=== PATIENT | male | born 1950 | race Caucasian/White ===

== ENCOUNTER 2016-07-21 21:25 | Inpatient (IN) | payer MEDICARE, OTHER ==
[~2016-07-21] VITALS: Ht 160 cm; Wt 99.8 kg
[2016-07-21 21:25] VITALS: BP 96/73
--- NOTE | 2016-07-21 21:25 | NUR ---
2104- PT ANCA SUTTON. TAKEN TO BED 1
--- NOTE | 2016-07-21 21:26 | NUR ---
BIBA C/O ABNORMAL LABS HGB 6. 8, FROM [facility]. PATIENT ALERT AWAKE ORIENTED CYMRO SPEAKING ONLY. HX: HTN, GOUT, GERD, HYPERLIPIDEMIA, SEPSIS, STROKE RIGHT SIDED WEAKNESS NKA CAME IN WITH ARAGON CATH, [facility] STATES RED COLOR IS NORMAL FOR PT, JAYLYN [facility] 1220
--- NOTE | 2016-07-21 22:00 | NUR ---
Patient being evaluated by physician DR HENLEY at bedside.
[2016-07-21] MEDS ORDERED: NACL 0.9% 1,000 ML IV ONE (22:01)
[2016-07-21 22:27] LABS: BASOPHILS # (AUTO) 0.3 K/uL (0.00-0.22); BASOPHILS % (AUTO) 2.4 % (0.0-2.0); EOSINOPHILS # (AUTO) 0.6 K/uL (0-0.4); EOSINOPHILS % (AUTO) 4.3 % (0.0-4.0); HEMATOCRIT 23.2 % (36-52); HEMOGLOBIN 7.5 g/dL (12.0-18.0); LYMPHOCYTES # (AUTO) 1.1 K/uL (2.0-11.5); LYMPHOCYTES % (AUTO) 7.8 % (20.5-51.1); MEAN CORPUSCULAR HEMOGLOBIN 28 pg (27-31); MEAN CORPUSCULAR HGB CONC 32 g/dL (33-37); MEAN CORPUSCULAR VOLUME 87 fL (80-94); MONOCYTES # (AUTO) 0.8 K/uL (0.8-1.0); MONOCYTES % (AUTO) 5.9 % (1.7-9.3); NEUTROPHILS # (AUTO) 10.8 K/uL (1.8-7.7); NEUTROPHILS % (AUTO) 79.6 % (42.2-75.2); PLATELET COUNT (AUTO) 413 K/uL (140-450); RED BLOOD CELL COUNT(AUTO) 2.67 MIL/uL (4.20-6.10); RED CELL DISTRIBUTION WIDTH 15.2 % (11.6-13.7); WHITE BLOOD COUNT (AUTO) 13.6 K/uL (4.8-10.8)
[2016-07-21] MEDS ORDERED: LANS15EC28 PO (22:32)
[2016-07-21] MEDS ORDERED: ALLO100T21 PO (22:32)
[2016-07-21] MEDS ORDERED: FURO-570 PO (22:32)
[2016-07-21] MEDS ORDERED: FERR325E14 PO (22:32)
[2016-07-21] MEDS ORDERED: CEP30L PO (22:32)
[2016-07-21] MEDS ORDERED: VITA1TAB44 PO (22:32)
[2016-07-21] MEDS ORDERED: LACT1TAB35 PO (22:32)
[2016-07-21 22:39] LABS: BILIRUBIN,URINE 1+ (NEGATIVE); BLOOD, URINE 2+ (NEGATIVE); COLOR,URINE ORANGE (YELLOW); LEUKOCYTE ESTERASE ,URINE 2+ (NEGATIVE); NITRITE, URINE POSITIVE (NEGATIVE); PH,URINE 5.5 (5.0-9.0); PROTEIN,URINE 1+ (NEGATIVE); UGLUCOSE NEGATIVE (NEGATIVE)
[2016-07-21 22:40] LABS: APPEARANCE,URINE HAZY (CLEAR)
[2016-07-21 22:42] LABS: ICTOTEST POSITIVE (NEGATIVE)
[2016-07-21 22:43] LABS: INR 1.3 (0.8-1.2); PROTHROMBIN TIME 12.2 secs (10.8-13.4)
[2016-07-21 22:45] LABS: BACTERIA,URINE 3+ /HPF (None Seen); SQUAMOUS EPITHELIAL CELL,UR 0-3 /LPF (0-3 (FEW)); WBC,URINE TOO MANY TO COUNT /HPF (0-5)
[2016-07-21 22:47] LABS: ALBUMIN 1.7 g/dL (3.4-5.0); ANION GAP 14.2 (8-16); CALCIUM 8.3 mg/dL (8.5-10.1); CREATININE 1.7 mg/dL (0.6-1.3); TOTAL BILIRUBIN 0.3 mg/dL (0.0-1.0); TOTAL PROTEIN, SERUM 7.5 g/dL (6.4-8.2)
[2016-07-21] MEDS ORDERED: METO5SOL19 PO (22:48)
[2016-07-21] MEDS ORDERED: MIRABULK PO (22:48)
[2016-07-21] MEDS ORDERED: POTA25TE38 PO (22:48)
[2016-07-21] MEDS ORDERED: TAMS0.4C96 PO (22:48)
[2016-07-21] MEDS ORDERED: LOSA25TA22 PO (22:48)
[2016-07-21] MEDS ORDERED: SENN-72 PO (22:48)
[2016-07-21] MEDS ORDERED: SIMV20TA1 PO (22:48)
[2016-07-21] MEDS ORDERED: SUCR1TAB35 PO (22:48)
[2016-07-21 22:49] LABS: POTASSIUM 6.2 mmol/L (3.5-5.1)
[2016-07-21] MEDS ORDERED: SODIUM POLYSTYRENE 15 GM/60 ML UDBTL PO ONE (22:50)
[2016-07-21 22:51] LABS: LACTIC ACID 2.2 mmol/L (0.4-2.0)
[2016-07-21] MEDS ORDERED: SAL1 PO (22:52)
[2016-07-21] MEDS ORDERED: LEVOFLOXACIN 750 MG/D5W PREMIX 150 ML IV ONE (23:00)
[2016-07-21] MEDS ORDERED: NACL 0.9% 1,500 ML IV ONE (23:00)
[2016-07-21] MEDS ORDERED: ASPIRIN 325 MG TAB PO ONE (23:00)
[2016-07-21] MEDS ORDERED: NACL 0.9% 1,000 ML IV SCH (23:30)
[2016-07-21] MEDS ORDERED: MORPHINE SULFATE 2 MG/ML SYR IVP PRN (23:30)
[2016-07-21] MEDS ORDERED: CALCIUM GLUCONATE 10% 1,000 MG in NACL 0.9% 50 ML IV ONE (23:35)
[2016-07-21] MEDS ORDERED: POLYETHYLENE GLYCOL 17 GM/PKT PO PRN (23:40)
[2016-07-22] VITALS (7 sets, daily range): BP systolic 90–125; BP diastolic 50–74
--- NOTE | 2016-07-22 00:03 | NUR ---
Pt report given to ERGAN WALLER . Transfer of care at this time.
--- NOTE | 2016-07-22 00:03 | NUR ---
Patient will be admitted to care of DR PINZON. Admited to TELE 107B. Will go to room 107B. Belongings list completed. Report to REGAN WALLER.
--- NOTE | 2016-07-22 01:10 | NUR ---
Admitted from EMERGENCY, with chief complaint of ABNORMAL LABS, 65 y/o ,Male, Awake, Alert and Orientedx4, Cooperative. Initial assessment done. Pt has midline on left upper arm. Vital signs checked. Plan of care discussed. Pt aware that he will receive blood. Pt oriented to call light, bed, phone,television, bathroom, smoking policy, visiting hours, procedures, ID bracelet on. Belongings list checked. MRSA swab collected. Pt placed on Isolation for history of MRSA, unknown source.
[2016-07-22] MEDS ORDERED: cefTRIAXone 1,000 MG VIAL ONE (01:23)
[2016-07-22] MEDS ORDERED: CALCIUM GLUCONATE 10% 1000 MG/10 ML VIAL ONE (01:23)
--- NOTE | 2016-07-22 01:30 | NUR ---
Pt made aware that another IV is needed for his antibiotic. Pt verbalized understanding.
--- NOTE | 2016-07-22 02:00 | NUR ---
NEW IV IN PLACED ON RT HAND G24 AFTER SEVERAL ATTEMPTS. IV ANTIBIOTIC WILL BE GIVEN ORDERED.
--- NOTE | 2016-07-22 02:23 | NUR ---
BLOOD TRANSFUSION STARTED. VITAL SIGNS CHECKED AND WNL. WILL CONTINUE TO MONITOR. Addendum: 07/22/16 at 0705 by Darlene Edward RN NOTES FOR 0235
--- NOTE | 2016-07-22 02:23 | NUR ---
PRE VITAL SIGNS CHECKED AND WNL. PT INFORMED THAT BLOOD IS AVAILABLE NOW. PT VERBALIZED UNDERSTANDING.
--- NOTE | 2016-07-22 02:50 | NUR ---
POST 15MINS BT VS CHECKED AND WNL. PT DENIES ANY DISCOMFORT OR ADVERSE REACTIONS. WILL CONTINUE TO MONITOR.
--- NOTE | 2016-07-22 04:00 | NUR ---
PT SLEEPING COMFORTABLY STILL BREATHING SLIGHTLY HEAVY. VITAL SIGNS CHECKED. PT DENIES ANY DISCOMFORT. SAFETY REINFORCED. CALL LIGHT W/IN REACH.
--- NOTE | 2016-07-22 05:00 | NUR ---
PT CALLED SAYING HE HAD BM. INFORMED ARBORIST REPRESENTATIVE AND WILL COME TO CLEAN PATIENT.
--- NOTE | 2016-07-22 05:50 | NUR ---
BLOOD TRANSFUSION FINISHED. VITAL SIGNS CHECKED. PT DENIES ANY DISCOMFORT OR ADVERSE REACTIONS. WILL CONTINUE TO MONITOR.
--- NOTE | 2016-07-22 07:15 | NUR ---
REPORT GIVEN TO DAYSHIFT NURSE.
--- NOTE | 2016-07-22 07:19 | NUR ---
RECEIVED REPORT FROM JANAY RN. PT SLEEPING IN BED. AAOX4. NO S/S OF ACUTE DISTRESS. PT ON O2 3L NC. RIGHT ARM CONTRACTED. IV SITE PATENT AND INTACT. MIDLINE SINGLE LUMEN NOTED TO LEFT UPPER ARM PATENT AND INTACT. CALL LIGHT WITHIN REACH. SAFETY MEASURES ENSURED. WILL CONTINUE TO MONITOR.
--- NOTE | 2016-07-22 07:59 | NUR ---
[facility]NS REFERRAL RECEIVED FOR "NOT APPLICABLE." REFERRAL REASON DOES NOT MEET HIGH NUTRITION RISK CRITERIA PER HOSPITAL POLICY. PATIENT HAS BEEN SCREENED AND CATEGORIZED MODERATE NUTRITION RISK. PATIENT WILL BE SEEN WITHIN 3-5 DAYS OF ADMISSION. 07/24/16-07/26/[address]
[2016-07-22 08:48] LABS: HEMATOCRIT 23.6 % (36-52); HEMOGLOBIN 7.7 g/dL (12.0-18.0); MEAN CORPUSCULAR HEMOGLOBIN 28 pg (27-31); MEAN CORPUSCULAR HGB CONC 33 g/dL (33-37); MEAN CORPUSCULAR VOLUME 85 fL (80-94); PLATELET COUNT (AUTO) 396 K/uL (140-450); RED BLOOD CELL COUNT(AUTO) 2.78 MIL/uL (4.20-6.10); RED CELL DISTRIBUTION WIDTH 14.3 % (11.6-13.7)
[2016-07-22 08:55] LABS: CALCIUM 7.8 mg/dL (8.5-10.1); CARBON DIOXIDE 16.8 mmol/L (21-32); CREATININE 1.6 mg/dL (0.6-1.3); POTASSIUM 4.8 mmol/L (3.5-5.1)
[2016-07-22] MEDS: LOSARTAN 25 MG TAB PO SCH (09:00)
[2016-07-22] MEDS: FUROSEMIDE 40 MG TAB PO SCH (09:00)
[2016-07-22] MEDS ORDERED: ENOXAPARIN 40 MG/0.4 ML SYR SUBQ SCH (09:00)
[2016-07-22 09:11] LABS: CREATINE KINASE MB 1.5 ng/mL (0-3.6)
[2016-07-22] MEDS ORDERED: DEXTROSE 50% 50 ML SYR IVP PRN (09:15)
[2016-07-22 09:25] LABS: EOSINOPHILS % (MANUAL) 2 % (0-4); LYMPHOCYTES % (MANUAL) 6 % (20-46); METAMYELOCYTES % 1 % (0-0); MONOCYTES % (MANUAL) 6 % (5-12); NEUTROPHILS % (MANUAL) 85 (43-65)
[2016-07-22 09:26] LABS: PLATELET ESTIMATE ADEQUATE; POLYCHROMASIA 1+
[2016-07-22] MEDS ORDERED: NACL 0.9% 500 ML IV SCH (09:50)
[2016-07-22] MEDS: VIT-B COMP/VIT-C/FOLIC ACID 1 TAB PO SCH (09:56)
[2016-07-22] MEDS: SUCRALFATE 1 GM TAB PO SCH ×2 (09:56→20:29)
[2016-07-22] MEDS: TAMSULOSIN 0.4 MG CAP PO SCH (09:56)
[2016-07-22] MEDS: FERROUS SULFATE 325 MG TABEC PO SCH ×2 (09:56→20:30)
[2016-07-22] MEDS: SODIUM CHLORIDE 1 GM TAB PO SCH ×2 (09:57→20:29)
[2016-07-22] MEDS: ALLOPURINOL 100 MG TAB PO SCH ×2 (09:57→20:30)
[2016-07-22] MEDS: LACTULOSE 20 GM/30 ML UDC PO SCH (09:57)
[2016-07-22] MEDS: ENOXAPARIN 40 MG/0.4 ML SYR SUBQ SCH (10:02)
--- NOTE | 2016-07-22 10:15 | NUR ---
PT RESTING IN BED. NO S/S OF ACUTE DISTRESS. PT TOLERATED AM MEDS WELL. CALL LIGHT WITHIN REACH. WILL CONTINUE TO MONITOR.
[2016-07-22] MEDS: BLOOD GLUCOSE MONITORING 1 DEV DEV FS SCH ×3 (12:00→20:51)
--- NOTE | 2016-07-22 12:07 | NUR ---
PT RESTING IN BED. NO S/S OF ACUTE DISTRESS. ON O2 3L NC. CALL LIGHT WITHIN REACH. SAFETY MEASURES ENSURED. WILL CONTINUE TO MONITOR.
[2016-07-22] MEDS: INSULIN LISPRO SLIDING SCALE 100 UNITS/ML VIAL SUBQ PRN ×3 (12:33→20:53)
--- NOTE | 2016-07-22 12:52 | NUR ---
[place] [facility] [phone] PHONE TIEN [phone]
--- NOTE | 2016-07-22 14:43 | NUR ---
PT RESTING BED. NO S/S OF ACUTE DISTRESS. DR. DUMONT IN TO SEE PT. PT DENIES PAIN. CALL LIGHT WITHIN REACH. SAFETY MEASURES ENSURED. WILL CONTINUE TO MONITOR.
--- NOTE | 2016-07-22 14:46 | NUR ---
REQUEST FOR MEDICAL RECORDS FROM [facility] SENT.
[2016-07-22 15:27] LABS: ANION GAP 12.5 (8-16); CALCIUM 7.9 mg/dL (8.5-10.1); CREATININE 1.7 mg/dL (0.6-1.3); POTASSIUM 4.5 mmol/L (3.5-5.1)
--- NOTE | 2016-07-22 16:05 | NUR ---
PT RESTING IN BED. NO S/S OF ACUTE DISTRESS. PT DENIES PAIN. CALL LIGHT WITHIN REACH. SAFETY MEASURES ENSURED. WILL CONTINUE TO MONITOR.
[2016-07-22 17:00] LABS: CREATINE KINASE MB 1.3 ng/mL (0-3.6)
--- NOTE | 2016-07-22 19:15 | NUR ---
RECEIVED REPORT FROM SRIDHAR FOX AT BEDSIDE. INITIAL ASSESSMENT COMPLETED. PT AAOX4. PT IS BEDBOUND. PT HAS IV ACCESS TO LEFT APPER ARM; MIDLINE SINGLE LUMEN AND RIGHT HAND 24 G; ASYMPTOMATIC, PATENT AND INTACT. PT'S SKIN IS INTACT. EDEMA BILATERAL LOWER EXTREMITIES NOTED. PT HAS WEAKNESS TO RIGHT SIDE OF BODY. PT HAS A ARAGON IN PLACE. PT ON 02 3L NC SATURATION AT 98%. EXPLAINED PLAN OF CARE TO PT AND HE VERBALIZES UNDERSTANDING. CALL LIGHT WITHIN REACH.
--- NOTE | 2016-07-22 19:20 | NUR ---
ENDORSED PLAN OF CARE TO NIGHT RN. PT REMAINS IN STABLE CONDITION.
--- NOTE | 2016-07-22 19:40 | NUR ---
DR. TANNER Strange IN TO SEE PT. WILL CONTINUE TO MONITOR PT.
[2016-07-22] MEDS ORDERED: FUROSEMIDE 20 MG/2 ML VIAL IVP SCH ×2 (19:45→23:35)
[2016-07-22] MEDS: SIMVASTATIN 20 MG TAB PO SCH (20:30)
[2016-07-22] MEDS: SENNA 8.6 MG TAB PO SCH (20:30)
--- NOTE | 2016-07-22 20:53 | NUR ---
PT TOLERATED 2100 MEDS WELL. CALL LIGHT WITHIN REACH, WILL CONTINUE TO MONITOR PT.
--- NOTE | 2016-07-22 22:25 | NUR ---
PT REPOSITIONED/TURNED, LINEN CHANGED WITH HELP OF MEJIA BECERRA. PT STABLE. CALL LIGHT WITHIN REACH.
[2016-07-22 22:58] LABS: URINE SODIUM, RANDOM 6 mmol/l (40-220)
[2016-07-22 22:59] LABS: POTASSIUM,URINE RANDOM 37 mmol/L (12-75)
--- NOTE | 2016-07-22 23:30 | NUR ---
PT STATED THAT HE DOES NOT FEEL GOOD. VS ARE STABLE AT THIS TIME. PT STATES HE IS HAVING TROUBLE BREATHING. PT ON 02 4L NC. PT SATURATION 97%, WILL CALL RT.
--- NOTE | 2016-07-22 23:35 | NUR ---
CALLED DR. PINZON ABOUT PT NOT FEELING WELL, FEELING PRESSURE ON CHEST. DR. PINZON ORDERED LASIX 20 MG IV NOW. WILL FOLLOW UP ON ORDERS. WILL CONTINUE TO MONITOR PT. VS STABLE.
--- NOTE | 2016-07-22 23:35 | NUR ---
RT AT BEDSIDE GIVING PT BREATHING TREATMENTS. PT TOLERATING IT WELL, WILL CONTINUE TO MONITOR PT.
--- NOTE | 2016-07-22 23:40 | NUR ---
WILL GIVE LASIX 20 MG IV ONCE ORDERED. VS 136/75, HR 125, 02 SAT 97%, PT DENIES PAIN. WILL MONITOR PT.
[2016-07-22] MEDS ORDERED: FUROSEMIDE 20 MG/2 ML VIAL IVP ONE (23:43)
[2016-07-22] MEDS: ALBUTEROL 0.083% 2.5 MG/3 ML NEBU INH PRN (23:46)
--- NOTE | 2016-07-22 23:59 | NUR ---
PT WAS HAVING DIFFICULTY BREATHING AND COMPLAIN OF TIGHTNESS IN CHEST. SPOKE WITH DR PINZON, ORDER EKG, BIPAP, HHNTX, ABG 30MIN POST BIPAP PLACEMENT. PT PLACED ON BIPAP 14/8, 14, 40%, TOLERATING SUPPORT WELL. ADMINISTERED HHNTX, TURNER WELL. PT RESTING AT THIS TIME, VITAL SIGNS IMPROVED. WILL CONT TO MONITOR.
[2016-07-23] VITALS: BP 133/75
--- NOTE | 2016-07-23 00:22 | NUR ---
PT CURRENTLY ON BI PAP. PT STATES THAT HE FEELS BETTER. WILL CONTINUE TO MONITOR PT.
[2016-07-23 00:42] LABS: BLOOD GAS BASE EXCESS -7.6 mmol/L (-2.0-2.0); BLOOD GAS HCO3 17.2 mmol/L; BLOOD GAS PCO2 31.9 mmHg (20-50); BLOOD GAS PO2 105.8 mmHg
[2016-07-23 00:44] LABS: BLOOD GAS O2 SAT% 98.1 % (92.0-98.5)
--- NOTE | 2016-07-23 01:05 | NUR ---
PT SLEEPING AT THIS TIME, NO SIGNS OF DISTRESS/DISCOMFORT. VS STABLE, WILL CONTINUE TO MONITOR PT.
--- NOTE | 2016-07-23 03:05 | NUR ---
PT REMOVED BIPAP, HE STATED THAT IT BOTHERS HIM AND THAT HE DOES NOT NEED IT. PT BACK IN 02 3L NC; SATURATION IS 98%. WILL CONTINUE TO MONITOR PT.
--- NOTE | 2016-07-23 03:05 | NUR ---
PT REMOVED BIPAP AND REQUESTED TO KEEP IT OFF AT THIS TIME. PT PLACED BACK ON 3LPM NC SP02 98%, NO RESP DISTRESS NOTED, BIPAP ON STANDBY AT BEDSIDE, PATRICIA RN AND PANCHO ELECTRIC CONTAINER TESTER NURSE AWARE. WILL CONT TO MONITOR
[2016-07-23 04:00] VITALS: BP 118/71
--- NOTE | 2016-07-23 05:04 | NUR ---
PT STABLE, NO SIGNS OF DISTRESS NOTED. CALL LIGHT WITHIN REACH.
[2016-07-23] MEDS: BLOOD GLUCOSE MONITORING 1 DEV DEV FS SCH ×4 (06:29→21:33)
[2016-07-23] MEDS: INSULIN LISPRO SLIDING SCALE 100 UNITS/ML VIAL SUBQ PRN ×4 (06:29→21:30)
--- NOTE | 2016-07-23 06:38 | NUR ---
PT HAS BEEN REPOSITIONED/TURNED Q2H THOROUGH OUT THE SHIFT WITH HELP OF MEJIA BECERRA.
--- NOTE | 2016-07-23 07:05 | NUR ---
ENDORSED PLAN OF CARE TO SRIDHAR MOHAN PT IN STABLE CONDITION.
--- NOTE | 2016-07-23 07:06 | NUR ---
RECEIVED REPORT FROM THE RECORD SEARCHER NURSE AT BEDSIDE. PT IS SLEEPING. ACCORDING TO RECORD SEARCHER NURSE, HAD A ROUGH NIGHT. RESTING COMFORTABLY. NO SIGNS OF DISTRESS. NC O2 AT 3L. PT HAS A L UA MIDLINE SINGLE LUMEN PICC LINE AND AN IV ON R HAND 24G SL. PT HAS BILATERAL NON-PITTING EDEMA. NOTED THE ARAGON CATH. SKIN INTACT. WILL CONTINUE TO MONITOR PT. ALL SAFETY MEASURES IN PLACE.
[2016-07-23 08:00] VITALS: BP 90/52
--- NOTE | 2016-07-23 08:10 | NUR ---
V/S WITHIN NORMAL RANGE. HE IS AWAKE. AUSTRALIAN SPEAKING. NO COMPLAINTS OF PAIN. DISTRICT ASSOCIATE JUDGE IS HERE. ASSISTED DISTRICT ASSOCIATE JUDGE TO PULL PT UP SO HE CAN SIT UP AND EAT HIS BREAKFAST. WILL CONTINUE TO MONITOR PT.
[2016-07-23] MEDS: LOSARTAN 25 MG TAB PO SCH (09:00)
[2016-07-23] MEDS: TAMSULOSIN 0.4 MG CAP PO SCH (09:03)
[2016-07-23] MEDS: SUCRALFATE 1 GM TAB PO SCH ×2 (09:03→21:35)
[2016-07-23] MEDS: LACTULOSE 20 GM/30 ML UDC PO SCH (09:03)
[2016-07-23] MEDS: ALLOPURINOL 100 MG TAB PO SCH ×2 (09:03→21:35)
[2016-07-23] MEDS: FERROUS SULFATE 325 MG TABEC PO SCH ×2 (09:03→21:35)
[2016-07-23] MEDS: FUROSEMIDE 40 MG TAB PO SCH (09:04)
[2016-07-23] MEDS: SODIUM CHLORIDE 1 GM TAB PO SCH ×2 (09:04→21:35)
[2016-07-23] MEDS: ENOXAPARIN 40 MG/0.4 ML SYR SUBQ SCH (09:05)
[2016-07-23] MEDS: VIT-B COMP/VIT-C/FOLIC ACID 1 TAB PO SCH (09:08)
--- NOTE | 2016-07-23 09:13 | NUR ---
ADMINISTERED MORNING MEDS. HELD COZAAR D/T LOW BP. ALL OTHER MEDS WERE GIVEN. PT TOLERATED WELL. WILL CONTINUE TO MONITOR PT.
--- NOTE | 2016-07-23 11:09 | NUR ---
CRITICAL LAB RESULT: MRSA NARES POSITIVE CALLED DR. CRUZ. WAITING FOR RETURN CALL.
--- NOTE | 2016-07-23 11:15 | NUR ---
AWAKE AND ALERT PATIENT PRESENTING WITH NAUSEA AND EMESIS CREDENTIALING MANAGER AWARE CALLED [facility] /RN NOTIFIED BIPAP VISION AT BEDSIDE
--- NOTE | 2016-07-23 11:27 | NUR ---
PT VOMITED. CALLED BRAND RECORDER TO CLEAN PT UP. CALLED [facility]S TO COME AND CLEAN THE FLOOR. WILL CONTINUE TO CHECK ON PT.
[2016-07-23 11:34] LABS: ANION GAP 15.3 (8-16); CALCIUM 8.1 mg/dL (8.5-10.1); CREATININE 1.6 mg/dL (0.6-1.3); POTASSIUM 4.3 mmol/L (3.5-5.1)
--- NOTE | 2016-07-23 11:35 | NUR ---
LAB CALLED WITH CRITICAL SODIUM 124. PAGED DR. DUMONT
[2016-07-23 11:43] LABS: HEMATOCRIT 25.4 % (36-52); MEAN CORPUSCULAR HEMOGLOBIN 27 pg (27-31); MEAN CORPUSCULAR HGB CONC 31 g/dL (33-37); MEAN CORPUSCULAR VOLUME 87 fL (80-94); PLATELET COUNT (AUTO) 437 K/uL (140-450); RED BLOOD CELL COUNT(AUTO) 2.91 MIL/uL (4.20-6.10); WHITE BLOOD COUNT (AUTO) 16.8 K/uL (4.8-10.8)
[2016-07-23 11:55] LABS: MAGNESIUM 2.1 mg/dL (1.8-2.4); PHOSPHORUS 4.7 mg/dL (2.5-4.9)
[2016-07-23 12:00] VITALS: BP 111/66
[2016-07-23 12:05] LABS: BAND % (MANUAL) 6 % (0-8); LYMPHOCYTES % (MANUAL) 2 % (20-46); MONOCYTES % (MANUAL) 8 % (5-12); NEUTROPHILS % (MANUAL) 84 (43-65)
--- NOTE | 2016-07-23 12:34 | NUR ---
CM NOTE CONCURRENT REVIEW FAXED TO [facility] / FAX# [phone], ATTN: TIEN #[phone]
--- NOTE | 2016-07-23 13:08 | NUR ---
CRITICAL LABS: GRAM POSITIVE COCCI IN CLUSTERS IN BLOOD CULTURE. DR. CRUZ PAGES WITH RESULTS.
[2016-07-23] MEDS ORDERED: VANCOMYCIN PER PHARMACY MC PRN (13:25)
[2016-07-23] MEDS: VANCOMYCIN 1GM/DEXT 5% PREMIX 200 ML IV SCH (15:42)
--- NOTE | 2016-07-23 15:48 | NUR ---
PT IS RESTING, WATCHING TV. [place], USING ACCESSORY MUSCLES. COUNTED 28 RESPIRATIONS. PT STATES HE IS FINE. NO DISCOMFORT. NO PAIN. I LOWERED HIS HOB DOWN. ASKED ME TO POUR HIM A CUP OF WATER. STATED EVERYTHING IS FINE. WILL CONTINUE TO MONITOR. VANCO RUNNING NOW.
[2016-07-23 16:00] VITALS: BP 116/52
--- NOTE | 2016-07-23 18:05 | NUR ---
PT IS SITTING HIGH FOWLERS. HE IS EATING HIS DINNER. NO SIGN OF DISTRESS. NO COMPLAINTS. NO PAIN AT THIS TIME. WILL CONTINUE TO MONITOR PT.
--- NOTE | 2016-07-23 19:15 | NUR ---
ENDORSED PT TO THE MACHINE SILK SCREEN PRINTER NURSES AT BEDSIDE FOR CONTINUITY OF CARE. PT IS RESTING IN BED. WATCHING TV. NO SIGNS OF DISTRESS. BREATHING IS BIT SHALLOW AND RAPID BUT NO COMPLAINTS OF SOB.
--- NOTE | 2016-07-23 19:25 | NUR ---
RECEIVED REPORT FROM SRIDHAR JO AT BEDSIDE. INITIAL ASSESSMENT COMPLETED. PT AAOX4. PT IS BEDBOUND. PT HAS IV ACCESS TO LEFT APPER ARM; MIDLINE SINGLE LUMEN AND RIGHT HAND 24 G; ASYMPTOMATIC, PATENT AND INTACT. PT'S SKIN IS INTACT. EDEMA BILATERAL LOWER EXTREMITIES NOTED. PT HAS WEAKNESS TO RIGHT SIDE OF BODY. PT HAS A ARAGON IN PLACE. PT ON 02 3L NC SATURATION AT 100%. RT AT BEDSIDE. PT WATCHING TV AT THIS TIME. PT DENIES PAIN. EXPLAINED PLAN OF CARE TO PT AND HE VERBALIZES UNDERSTANDING. CALL LIGHT WITHIN REACH. WILL CONTINUE TO MONITOR PT. Addendum: 07/23/16 at 1958 by Anabel Draper RN RECEIVED REPORT FROM SRIDHAR MOHAN, TAY JO.
--- NOTE | 2016-07-23 19:43 | NUR ---
BIPAP STANDY AT THIS TIME, PATIENT STATED LATER HE MIGHT WANT BIPAP
[2016-07-23 20:00] VITALS: BP 101/60
--- NOTE | 2016-07-23 20:45 | NUR ---
DR. DUMONT CALLED TO ASK FOR PT'S STATUS. ORDERED A CHEST XRAY AND LASIX IV 40 MG DAILY. WILL FOLLOW UP ON ORDERS.
[2016-07-23] MEDS: SENNA 8.6 MG TAB PO SCH (21:35)
[2016-07-23] MEDS: SIMVASTATIN 20 MG TAB PO SCH (21:36)
[2016-07-23] MEDS: MUPIROCIN 2% OINT 22 GM TUBE TP SCH (21:36)
--- NOTE | 2016-07-23 21:50 | NUR ---
PT TOLERATED 2100 MEDS WELL. PT ON BI PAP AT THIS TIME, PT STABLE. WILL CONTINUE TO MONITOR PT.
--- NOTE | 2016-07-23 22:07 | NUR ---
DEHYDRATING PRESS OPERATOR AT BEDSIDE. WILL CONTINUE TO MONITOR PT.
--- NOTE | 2016-07-23 23:50 | NUR ---
CALLED DR. DUMONT TO NOTIFY HIM OF CHEST XRAY RESULTS; NO ORDERS GIVEN. WILL CONTINUE TO MONITOR PT.
[2016-07-24] VITALS (13 sets, daily range): BP systolic 80–136; BP diastolic 50–67
--- NOTE | 2016-07-24 00:45 | NUR ---
CHECKED ON PT. VS STABLE, PT ON BIPAP. PT TURNED/REPOSITIONED. WILL CONTINUE TO MONITOR PT.
--- NOTE | 2016-07-24 02:56 | NUR ---
PT STABLE, NO SIGNS OF DISTRESS NOTED. WILL CONTINUE TO MONITOR PT.
--- NOTE | 2016-07-24 03:25 | NUR ---
CHECKED ON PT; VS STABLE. PT 02 SATURATION 100%. PT DENIES PAIN. WILL CONTINUE TO MONITOR PT.
--- NOTE | 2016-07-24 04:56 | NUR ---
PT CHANGED/REPOSITIONED WITH HELP OF CNAS. LINEN CHANGED, PT TOLERATED IT WELL. NO SIGNS OF DISTRESS NOTED. CALL LIGHT WITHIN REACH.
--- NOTE | 2016-07-24 05:59 | NUR ---
patient requested to be taken off bipap. Placed back on NC 3lpm.
--- NOTE | 2016-07-24 06:00 | NUR ---
PT REQUESTED TO HAVE THE BIPAP REMOVED. PT BACK IN 02 3L NC; 02 SATURATION 98%. WILL CONTINUE TO MONITOR PT.
--- NOTE | 2016-07-24 06:30 | NUR ---
PT HAVING SHORTNESS OF BREATH, REQUESTING TO GET BACK ON BI PAP. WILL CALL RT.
--- NOTE | 2016-07-24 06:35 | NUR ---
PT'S VS STABLE, PT ON 02 3L AT THIS TIME. SATURATION 98%. WILL CONTINUE TO MONITOR PT.
[2016-07-24] MEDS: BLOOD GLUCOSE MONITORING 1 DEV DEV FS SCH ×4 (06:36→21:11)
--- NOTE | 2016-07-24 06:40 | NUR ---
RT CUENCA AT BEDSIDE, PUTTING PT BACK ON THE BIPAP.
--- NOTE | 2016-07-24 06:55 | NUR ---
RCV'D PT ON 3 L NC. PT IS SOB AND HAS INCREASED WOB. PT IS BACK ON BIPAP SETTINGS ARE 14/8,14,40% PT DESATED TO 82% INCREASED FIO2 TO 50% PT NOW SATTING 96% HR 124. DIMINSHED BS. BIPAP IS CONNECTED TO RED OUTLET. ALARMS ARE AUDIBLE. AMBU BAG AT BEDSIDE. SRIDHAR GOMEZ AT BEDSIDE. WILL CONTINUE TO MONITOR.
--- NOTE | 2016-07-24 07:01 | NUR ---
PT DESATED TO 73% INCREASED FIO2 TO 100%.
--- NOTE | 2016-07-24 07:09 | NUR ---
DR CRUZ IN TO SEE THE PT WILL ORDER ABG . SRIDHAR GOMEZ PUTTING IN ORDER NOW. WILL DO ABG NOW AND GIVE DR NORI ASA ITS DONE.
--- NOTE | 2016-07-24 07:20 | NUR ---
ONCOMING DAY SHIFT NURSE CINTIA AT BEDSIDE. WILL FOLLOW UP ON ORDERS.
[2016-07-24 07:25] LABS: BLOOD GAS PCO2 28.2 mmHg (20-50); BLOOD GAS PH 7.369 (7.35-7.45)
--- NOTE | 2016-07-24 07:25 | NUR ---
PT HAVING SHORTNESS OF BREATH, RT AT BEDSIDE. LASIX IV 40MG GIVEN; CHARGE NURSE AWARE.
--- NOTE | 2016-07-24 07:25 | NUR ---
RECEIVED REPORT FROM NIGHT NURSE. ON BIPAP. PT IS CURRENTLY HAVING SOB AND ANS SAT 73%, RT IN ROOM, DR. CRUZ NOTIFIED AND IN TO SEE PT.
[2016-07-24 07:26] LABS: BLOOD GAS BASE EXCESS -8.3 mmol/L (-2.0-2.0); BLOOD GAS HCO3 15.9 mmol/L; BLOOD GAS PO2 348.5 mmHg
--- NOTE | 2016-07-24 07:30 | NUR ---
ABG DONE WITH NO INCIDENT. GAVE RESULTS TO DR CRUZ. PER DR CRUZ TO DECREASE FIO1. FIO2 DECREASED TO 60% PT SAT IS 92%. WILL CONTINUE TO MONITOR.
--- NOTE | 2016-07-24 07:30 | NUR ---
ENDORSED PLAN OF CARE TO SRIDHAR CHAMBERLAIN FOR CONTINUITY OF CARE. PT SATURATION IS NOW 100%. PT ON BIPAP.
--- NOTE | 2016-07-24 07:30 | NUR ---
DR. CRUZ AT BEDSIDE. DR CRUZ ORDERED CHEST XRAY, CBC, BMP AND ABGS STAT. WILL FOLLOW UP ON ORDERS.
--- NOTE | 2016-07-24 07:30 | NUR ---
PT IS AAOX4 ITALIAN SPEAKING, ON BIPAP PULSE OX 100%, IV TO RIGHT HAND 24G SALINE LOCK, LEFT MIDLINE SINGLE LUMEN PICC LINE SALINE LOCK. SKIN IS INTACT WITH BLE EDEMA AND RIGHT HAND EDEMA. ARAGON IN PLACE ANGELINE COLOR URINE. INITIAL ASSESSMENT COMPLETED. REVIEWED PLAN OF CARE WITH PT. ALL SAFETY PRECAUTIONS MET. CALL LIGHT WITHIN REACH. WILL CONTINUE TO MONITOR.
[2016-07-24 08:07] LABS: HEMATOCRIT 25.2 % (36-52); HEMOGLOBIN 8.1 g/dL (12.0-18.0); MEAN CORPUSCULAR HEMOGLOBIN 28 pg (27-31); MEAN CORPUSCULAR HGB CONC 32 g/dL (33-37); MEAN CORPUSCULAR VOLUME 86 fL (80-94); PLATELET COUNT (AUTO) 456 K/uL (140-450); RED BLOOD CELL COUNT(AUTO) 2.93 MIL/uL (4.20-6.10); RED CELL DISTRIBUTION WIDTH 14.7 % (11.6-13.7); WHITE BLOOD COUNT (AUTO) 16.8 K/uL (4.8-10.8)
--- NOTE | 2016-07-24 08:15 | NUR ---
PT SAT IS 100% DECREASED FIO2 TO 50% . PT SAT IS 96% Addendum: 07/24/16 at 0836 by Michelle Rai RT SRIDHAR PATEL
[2016-07-24 08:23] LABS: BAND % (MANUAL) 10 % (0-8); EOSINOPHILS % (MANUAL) 1 % (0-4); LYMPHOCYTES % (MANUAL) 5 % (20-46); MONOCYTES % (MANUAL) 2 % (5-12); NEUTROPHILS % (MANUAL) 82 (43-65)
[2016-07-24 08:28] LABS: ANION GAP 13.6 (8-16); CARBON DIOXIDE 18.8 mmol/L (21-32); CREATININE 1.6 mg/dL (0.6-1.3); POTASSIUM 4.4 mmol/L (3.5-5.1)
[2016-07-24] MEDS ORDERED: FUROSEMIDE 40 MG/4 ML VIAL IVP SCH (09:00)
[2016-07-24] MEDS: LACTULOSE 20 GM/30 ML UDC PO SCH (09:36)
[2016-07-24] MEDS: TAMSULOSIN 0.4 MG CAP PO SCH (09:36)
[2016-07-24] MEDS: VIT-B COMP/VIT-C/FOLIC ACID 1 TAB PO SCH (09:37)
[2016-07-24] MEDS: SUCRALFATE 1 GM TAB PO SCH ×2 (09:37→21:28)
[2016-07-24] MEDS: LOSARTAN 25 MG TAB PO SCH (09:37)
[2016-07-24] MEDS: ALLOPURINOL 100 MG TAB PO SCH ×2 (09:37→21:29)
[2016-07-24] MEDS: FERROUS SULFATE 325 MG TABEC PO SCH ×2 (09:37→21:28)
--- NOTE | 2016-07-24 09:37 | NUR ---
DUE MEDICATIONS GIVEN. PT IS CURRENTLY EATING BREAKFAST. PT IS ON O2 3L VIA NC PULSE OX 97%. CALL LIGHT WITHIN REACH. WILL CONTINUE TO MONITOR.
[2016-07-24] MEDS: SODIUM CHLORIDE 1 GM TAB PO SCH ×2 (09:38→21:29)
[2016-07-24] MEDS: CHLORHEXADINE GLUC 2% CLOTH TP SCH (09:54)
[2016-07-24] MEDS: MUPIROCIN 2% OINT 22 GM TUBE TP SCH ×2 (09:54→21:08)
[2016-07-24] MEDS: ENOXAPARIN 40 MG/0.4 ML SYR SUBQ SCH (09:54)
--- NOTE | 2016-07-24 12:17 | NUR ---
PT REQUESTED TO BE OFF BIPAP TO EAT. BIPAP OFF. SRIDHAR GOMEZ AT BEDSIDE.
[2016-07-24] MEDS: INSULIN LISPRO SLIDING SCALE 100 UNITS/ML VIAL SUBQ PRN ×3 (12:42→21:10)
--- NOTE | 2016-07-24 12:54 | NUR ---
PUT PT BACK ON BIPAP SATING AT 100%. CALL LIGHT WITHIN REACH. WILL CONTINUE TO MONITOR.
[2016-07-24] MEDS ORDERED: FUROSEMIDE 100 MG in DEXTROSE 5% 100 ML IV SCH (12:55)
--- NOTE | 2016-07-24 12:57 | NUR ---
DR. SALAZAR IN TO SEE PT. WILL FOLLOW UP WITH ANY NEW ORDERS.
--- NOTE | 2016-07-24 13:34 | NUR ---
CM NOTE CONCURRENT REVIEW FAXED TO [facility] / FAX# [phone], ATTN: TIEN #[phone]
[2016-07-24] MEDS: PIPER/TAZO 3.375GM/D5W PREMIX 50 ML IV SCH ×2 (13:39→21:27)
--- NOTE | 2016-07-24 14:25 | NUR ---
CHECKED IN ON PT. PT CURRENTLY SLEEPING BUT AWAKENS TO NAME. ALL NEEDS MET. CALL LIGHT WITHIN REACH.
--- NOTE | 2016-07-24 15:26 | NUR ---
LASIX 10ML /HR STARTED AT THIS TIME BP 108/55 HR 86 PULSE OX [address] SALAZAR AWARE OF BLOOD PRESSURE. NEW IV STARED LEFT HAND 24G. ALL NEEDS MET [facility]. WILL CONTINUE TO MONITOR.
--- NOTE | 2016-07-24 15:32 | NUR ---
07/24/16 RD INITIAL ASSESSMENT COMPLETED PLEASE REFER TO NUTRITION ASSESSMENT UNDER CARE ACTIVITY FOR ESTIMATED NUTRITIONAL NEEDS. RD RECOMMENDATIONS: 1. RECOMMEND ADDING CCHO 60 GM TO CURRENT PUREE DIET D/T ELEVATED GLUCOSE LEVELS 2. RD TO ADJUST PROTEIN AMOUNT IN DIET D/T CHRONIC KIDNEY DISEASE 3. RD WILL F/U 3-5 DAYS; MODERATE RISK. HUONG ALTAMIRANO, RD
[2016-07-24] MEDS: VANCOMYCIN 1GM/DEXT 5% PREMIX 200 ML IV SCH (16:09)
--- NOTE | 2016-07-24 17:43 | NUR ---
PAGED DR SALAZAR REGARDING PT OUTPUT. AWAITING CALL BACK.
--- NOTE | 2016-07-24 18:00 | NUR ---
PLACED PT ON O2 3L VIA NC TO EAT DINNER, PULSE OX 100%. ALL NEEDS MET CALL LIGHT WITHIN REACH. WILL CONTINUE TO MONITOR.
--- NOTE | 2016-07-24 18:03 | NUR ---
RECEIVED CALLED BACK FROM DR SALAZAR, CHANGED LASIX TO 5ML/HR . WILL CONTINUE TO MONITOR.
--- NOTE | 2016-07-24 18:25 | NUR ---
PLACED PT BACK ON BIPAP, PULSE OX 100%. ALL NEEDS MET. CALL LIGHT WITHIN REACH. WILL CONTINUE TO MONITOR.
--- NOTE | 2016-07-24 19:30 | NUR ---
ENDORSED PLAN OF CARE TO NIGHT NURSE. PT IN STABLE CONDITION.
--- NOTE | 2016-07-24 19:31 | NUR ---
RECEIVED PT FROM CINTIA RN PT GERMAN SPEAKER ON BIPAP 13 IPAP/8EPAP NOT SOB NOTED ON LASIX DRIP 5 ML/H BP 90/60 ON TELEMETRY SR EDEMA ON BLE AND RT HAND HL ON LEFT HAND AND RT HAND IV DRIP. REPOSITIONED INITIAL ASSESSMENT DONE
[2016-07-24] MEDS: SENNA 8.6 MG TAB PO SCH (21:28)
[2016-07-24] MEDS: SIMVASTATIN 20 MG TAB PO SCH (21:29)
--- NOTE | 2016-07-24 22:00 | NUR ---
PT ON CLOSE MONITORING BP FOR LASIX DRIP ON SR ON TELEMETRY REPOSITIONED Q2H BLOOD SUGAR TEST WAS 205 COVERAGE WITH 4 UNITS HUMALOG SUB Q
[2016-07-25] VITALS (11 sets, daily range): BP systolic 77–110; BP diastolic 46–79
--- NOTE | 2016-07-25 03:10 | NUR ---
pt aaox4 not sob noted bppulse 87 bp 77/51 02 sat [address] villela was called to report pt condition and order to stop the lasix driip pt will be on continuing monitoring
--- NOTE | 2016-07-25 04:00 | NUR ---
PT ON BIPAP NOT SOB NOTED ON TELEMETRY SR BP 87/57, REPOSITIONED Q2H
[2016-07-25] MEDS: PIPER/TAZO 3.375GM/D5W PREMIX 50 ML IV SCH ×3 (04:26→20:31)
[2016-07-25] MEDS: BLOOD GLUCOSE MONITORING 1 DEV DEV FS SCH ×4 (06:47→20:43)
--- NOTE | 2016-07-25 06:51 | NUR ---
BLOOD SUGAR TEST 144 NOT COVERAGE PT ON BIBPAP NOT DISTRESS NOTED PT IS ENDORSED TO CINTIA WALLER FOR CONTINUITY OF CARE
--- NOTE | 2016-07-25 07:10 | NUR ---
RECEIVE REPORT FROM NIGHT NURSE. PT IS AAOX4 GREENLANDIC SPEAKING, ON BIPAP PULSE OX 100%, IV TO RIGHT HAND 24G SALINE LOCK, LEFT HAND 24G SALINE LOCK PATENT AND INTACT. SKIN IS INTACT WITH BLE EDEMA AND RIGHT HAND EDEMA. ARAGON IN PLACE ANGELINE COLOR URINE. DR CRUZ IN TO SEE PT. INITIAL ASSESSMENT COMPLETED. REVIEWED PLAN OF CARE WITH PT. ALL SAFETY PRECAUTIONS MET. CALL LIGHT WITHIN REACH. WILL CONTINUE TO MONITOR.
--- NOTE | 2016-07-25 07:19 | NUR ---
RECEIVED PT ON BIPAP, SETTINGS /, R14, FIO2 35%. PT IS ASLEEP AT THIS TIME BUT DOES RESPOND TO HIS NAME. PT IS NOT IN RESPIRATORY DISTRESS AT THIS TIME. BIPAP ALARMS ARE ON AND FUNCTIONING. BIPAP IS PLUGGED INTO RED OUTLET. WILL CONTINUE TO MONITOR.
--- NOTE | 2016-07-25 08:52 | NUR ---
PT REMOVED FROM BIPAP BECAUSE PT STATES HE WANTS TO EAT. PT PLACED ON 3L NASAL CANNULA SPO2 97%. PT IS NOT SOB AND NOT IN RESPIRATORY DISTRESS AT THIS TIME. NURSE CINTIA PATEL. WILL CONTINUE TO MONITOR.
[2016-07-25] MEDS: LOSARTAN 25 MG TAB PO SCH (09:00)
[2016-07-25] MEDS: LACTULOSE 20 GM/30 ML UDC PO SCH ×2 (09:09→22:36)
[2016-07-25] MEDS: SUCRALFATE 1 GM TAB PO SCH ×2 (09:09→20:32)
[2016-07-25] MEDS: VIT-B COMP/VIT-C/FOLIC ACID 1 TAB PO SCH (09:10)
[2016-07-25] MEDS: FERROUS SULFATE 325 MG TABEC PO SCH ×2 (09:10→20:33)
[2016-07-25] MEDS: SODIUM CHLORIDE 1 GM TAB PO SCH ×2 (09:10→20:33)
[2016-07-25] MEDS: ALLOPURINOL 100 MG TAB PO SCH ×2 (09:10→20:35)
[2016-07-25] MEDS: TAMSULOSIN 0.4 MG CAP PO SCH (09:10)
[2016-07-25] MEDS: CHLORHEXADINE GLUC 2% CLOTH TP SCH (09:10)
[2016-07-25] MEDS: MUPIROCIN 2% OINT 22 GM TUBE TP SCH ×2 (09:10→20:36)
[2016-07-25] MEDS: ENOXAPARIN 40 MG/0.4 ML SYR SUBQ SCH (09:12)
--- NOTE | 2016-07-25 09:13 | NUR ---
DUE MEDICATIONS GIVEN, PT TOLERATED WELL. PT CURRENTLY ON O2 3L VIA NC PULSE OX 99%. PT EATING BREAKFAST ASSISTED BY INSPECTOR BALANCE TRUING. CALL LIGHT WITHIN REACH. WILL CONTINUE TO MONITOR.
[2016-07-25 09:35] LABS: HEMATOCRIT 25.3 % (36-52); MEAN CORPUSCULAR HEMOGLOBIN 27 pg (27-31); MEAN CORPUSCULAR HGB CONC 32 g/dL (33-37); MEAN CORPUSCULAR VOLUME 86 fL (80-94); PLATELET COUNT (AUTO) 453 K/uL (140-450); RED BLOOD CELL COUNT(AUTO) 2.94 MIL/uL (4.20-6.10); RED CELL DISTRIBUTION WIDTH 14.4 % (11.6-13.7); WHITE BLOOD COUNT (AUTO) 14.3 K/uL (4.8-10.8)
[2016-07-25 09:50] LABS: ANION GAP 11.9 (8-16); CALCIUM 8.1 mg/dL (8.5-10.1); CARBON DIOXIDE 21.3 mmol/L (21-32); CREATININE 1.8 mg/dL (0.6-1.3); POTASSIUM 4.2 mmol/L (3.5-5.1)
[2016-07-25 09:52] LABS: BAND % (MANUAL) 5 % (0-8); BASOPHILS % (MANUAL) 1 % (0-2); EOSINOPHILS % (MANUAL) 4 % (0-4); LYMPHOCYTES % (MANUAL) 6 % (20-46); MONOCYTES % (MANUAL) 7 % (5-12); NEUTROPHILS % (MANUAL) 77 (43-65); PLATELET ESTIMATE ADEQUATE
[2016-07-25 09:54] LABS: MAGNESIUM 2.1 mg/dL (1.8-2.4); PHOSPHORUS 3.9 mg/dL (2.5-4.9)
--- NOTE | 2016-07-25 10:35 | NUR ---
ALL NEEDS MET AT THIS TIME . CALL LIGHT WITHIN REACH.
--- NOTE | 2016-07-25 10:37 | NUR ---
PT STATING HE IS SOB AND WANTS TO BE PLACED ON BIPAP. PT PLACED ON BIPAP WITH DOCUMENTED SETTINGS. PROTECTA-GEL PLACED UNDER MASK. BIPAP ALARMS ARE ON AND FUNCTIONING.
[2016-07-25] MEDS: INSULIN LISPRO SLIDING SCALE 100 UNITS/ML VIAL SUBQ PRN ×3 (12:27→20:44)
--- NOTE | 2016-07-25 12:32 | NUR ---
DUE MEDICATIONS GIVEN. PT CURRENTLY AWAKE. ON BIPAP PULSE OX 100%. CALL LIGHT WITHIN REACH. WILL CONTINUE TO MONITOR.
--- NOTE | 2016-07-25 13:00 | NUR ---
PICC NURSE CURRENTLY IN PT ROOM.
--- NOTE | 2016-07-25 13:25 | NUR ---
PT REMOVED FROM BIPAP TO EAT LUNCH. PLACED ON 3L NASAL CANNULA SPO2 99%.
--- NOTE | 2016-07-25 14:10 | NUR ---
PT CURRENTLY AWAKE, WATCHING TV. ON O2 2L VIA NC PULSE OX 99%. ALL NEEDS MET. CALL LIGHT WITHIN REACH. WILL CONTINUE TO MONITOR.
--- NOTE | 2016-07-25 14:50 | NUR ---
PT REMAINS OFF OF BIPAP ON 3L NASAL CANNULA. PT IS NOT IN RESPIRATORY DISTRESS. WILL CONTINUE TO MONITOR.
[2016-07-25] MEDS: VANCOMYCIN 1GM/DEXT 5% PREMIX 200 ML IV SCH (15:08)
[2016-07-25] MEDS ORDERED: ALBUMIN HUMAN 25% 100 ML IV SCH (15:45)
--- NOTE | 2016-07-25 15:46 | NUR ---
FAXED CONCURRENT REVIEW TO [facility] [place] [phone] PHONE TIEN [phone] FAXED MICROS TO [facility] [place].
--- NOTE | 2016-07-25 16:10 | NUR ---
DISCUSSED TRANSFER PLAN TO ICU WITH PT, PT VERBALIZED UNDERSTANDING. ALL NEEDS MET. CALL LIGHT WITHIN REACH.
--- NOTE | 2016-07-25 17:05 | NUR ---
PT'S AT BEDSIDE, INFORMED HER THAT PT WILL BE TRANSFER TO ICU, SHE VERBALIZED UNDERSTANDING.
--- NOTE | 2016-07-25 17:30 | NUR ---
PT TRANSFERRED TO ICU, REPORT GIVEN TO TIEN WALLER FOR CONTINUITY OF CARE . PT IN STABLE CONDITION.
--- NOTE | 2016-07-25 17:35 | NUR ---
TRANSFERRED PT FROM TELE 116 TO ICU BED 4 FOR CONTACT ISOLATION. PT AWAKE, ALERT, AND ORIENTED. NIUEAN SPEAKING ONLY. PT ON O2 NC 3L/MIN. NO S/S OF RESPIRATORY DISTRESS NOTED. ARAGON CATH IN PLACE WITH CLEAR YELLOW URINE. PT HAS PICC LINE TO LEFT UPPER ARM RUNNING ALBUMIN HUMAN , SITE INTACT AND PATENT. PT HAS LEFT HAND #24 G AND RIGHT HAND #24 G, SALINE LOCKED. SKIN INTACT. POC DISCUSSED WITH PT, WILL CONTINUE TO MONITOR.
--- NOTE | 2016-07-25 17:58 | NUR ---
BP CHECKED 105/55 AT THIS TIME.
--- NOTE | 2016-07-25 18:00 | NUR ---
PAGED DR. MARIE RIVER. STREET LIGHT LAMP CLEANER. WILL FOLLOW UP.
--- NOTE | 2016-07-25 18:05 | NUR ---
CALLED BACK. PER , HE WILL CALL THEN CALL BACK.
--- NOTE | 2016-07-25 18:45 | NUR ---
CALLED IN.UPDATED PT CONDITION, ORDER RECEIVED. WILL CARRY OUT.
[2016-07-25] MEDS ORDERED: NACL 3% 500 ML IV ONE (18:50)
--- NOTE | 2016-07-25 19:10 | NUR ---
BEDSIDE REPORT GIVEN TO MERNA. PT VSS AT THIS TIME. NO S/S OF RESPIRATORY DISTRESS NOTED.
--- NOTE | 2016-07-25 19:30 | NUR ---
RECEIVED REPORT FORM TIEN RN AT BEDSIDE. PT IS ALERT AWAKE ORIENTED X4. COOK ISLANDER-SPEAKING ONLY. INITIAL ASSESSMENT DONE. NO S/S OF RESPIRATORY DISTRESS OR SOB NOTED. ON O2 @ 2L/MIN VIA NASAL CANULA. NO C/O PAIN OR ANY DISCOMFORT AT THIS TIME. PLAN OF CARE REVIEWED TO PT AND VERBALIZED UNDERSTANDING AND NEED TO BE REINFORCED. CALL LIGHT WITHIN REACH. WILL CONTINUE TO MONITOR.
--- NOTE | 2016-07-25 19:30 | NUR ---
BEDSIDE REPORT GIVEN TO ANOTHER RN MAGALY DOUGLAS .
[2016-07-25] MEDS: SIMVASTATIN 20 MG TAB PO SCH (20:34)
[2016-07-25] MEDS: SENNA 8.6 MG TAB PO SCH (20:34)
[2016-07-25 22:34] LABS: ANION GAP 12.2 (8-16); CALCIUM 7.8 mg/dL (8.5-10.1); CARBON DIOXIDE 22.1 mmol/L (21-32); POTASSIUM 4.3 mmol/L (3.5-5.1)
[2016-07-26] VITALS (12 sets, daily range): BP systolic 89–123; BP diastolic 53–71
--- NOTE | 2016-07-26 01:00 | NUR ---
PT IS SLEEPING RIGHT NOW BUT EASILY AROUSABLE. NO S/S OF ANY DISCOMFORT AT THIS TIME. ALL NEEDS ARE ATTENDED. CALL LIGHT WITHIN REACH. WILL CONTINUE TO MONITOR.
[2016-07-26] MEDS: PIPER/TAZO 3.375GM/D5W PREMIX 50 ML IV SCH (04:18)
--- NOTE | 2016-07-26 04:30 | NUR ---
AM CARE RENDERED. BED LINEN CHANGED. REPOSITIONED PATIENT. KEPT CLEAN AND DRY. CALL LIGHT WITHIN REACH. WILL CONTINUE TO MONITOR.
[2016-07-26 05:30] LABS: BASOPHILS # (AUTO) 0.2 K/uL (0.00-0.22); BASOPHILS % (AUTO) 1.6 % (0.0-2.0); EOSINOPHILS # (AUTO) 0.9 K/uL (0-0.4); EOSINOPHILS % (AUTO) 6.6 % (0.0-4.0); HEMATOCRIT 22.3 % (36-52); HEMOGLOBIN 7.3 g/dL (12.0-18.0); LYMPHOCYTES # (AUTO) 0.7 K/uL (2.0-11.5); MEAN CORPUSCULAR HEMOGLOBIN 28 pg (27-31); MEAN CORPUSCULAR HGB CONC 33 g/dL (33-37); MEAN CORPUSCULAR VOLUME 85 fL (80-94); MONOCYTES # (AUTO) 0.6 K/uL (0.8-1.0); MONOCYTES % (AUTO) 4.3 % (1.7-9.3); NEUTROPHILS # (AUTO) 11.8 K/uL (1.8-7.7); PLATELET COUNT (AUTO) 431 K/uL (140-450); RED BLOOD CELL COUNT(AUTO) 2.62 MIL/uL (4.20-6.10); RED CELL DISTRIBUTION WIDTH 14.7 % (11.6-13.7); WHITE BLOOD COUNT (AUTO) 14.2 K/uL (4.8-10.8)
[2016-07-26 05:39] LABS: NEUTROPHILS % (AUTO) 82.5 % (42.2-75.2)
[2016-07-26 05:53] LABS: CALCIUM 7.8 mg/dL (8.5-10.1); CARBON DIOXIDE 20.2 mmol/L (21-32); CREATININE 2.2 mg/dL (0.6-1.3); POTASSIUM 4.2 mmol/L (3.5-5.1)
[2016-07-26] MEDS: BLOOD GLUCOSE MONITORING 1 DEV DEV FS SCH ×4 (06:24→20:56)
[2016-07-26] MEDS: INSULIN LISPRO SLIDING SCALE 100 UNITS/ML VIAL SUBQ PRN ×4 (06:25→20:58)
--- NOTE | 2016-07-26 07:13 | NUR ---
PT HAS NO S/S OF ANY DISCOMFORT. PLAN OF CARE ENDORSED TO ULI WALLER AT BEDSIDE FOR CONTINUITY OF CARE
--- NOTE | 2016-07-26 07:15 | NUR ---
RECEIVED PATIENT FROM SRIDHAR MCKENZIE. PT SEEN AT BEDSIDE; AAOX4, [place] SPEAKING. PT IS ON 2L O2 VIA NC WITH NO S/S SOB OR DISTRESS AT THIS TIME. PT ON INSTALLER MOLDING AND TRIM RUNNING SR AT THIS TIME. RIGHT HAND AND LEFT HAND 24G IV SALINE LOCKED. LEFT UPPER ARM PICC LINE NOTED RUNNING IVF AT TKO. PT HAS RIGHT LOWER EXTREMITY +2 EDEMA, LEFT LOWER EXTREMITY +1 EDEMA, BILATERAL HAND +2 EDEMA, AND SCROTAL/PENILE +3 EDEMA. PT HAS HX OF CVA WITH RIGHT SIDED WEAKNESS. ARAGON CATHETER IN PLACE DRAINING CLEAR, YELLOW URINE. PT IS BEDREST AT THIS TIME. SKIN WARM, DRY, INTACT. SAFETY MEASURES CHECKED, CALL LIGHT LEFT AT BEDSIDE. WILL CONTINUE TO MONITOR.
[2016-07-26] MEDS: ALBUTEROL 0.083% 2.5 MG/3 ML NEBU INH PRN ×4 (07:37→19:46)
--- NOTE | 2016-07-26 08:00 | NUR ---
ASSISTED PT WITH BREAKFAST TRAY. PATIENT ONLY WANTED JUICE.
[2016-07-26] MEDS: LACTULOSE 20 GM/30 ML UDC PO SCH ×3 (09:00→20:41)
[2016-07-26] MEDS ORDERED: CARVEDILOL 3.125 MG TAB PO SCH (09:00)
[2016-07-26] MEDS: FERROUS SULFATE 325 MG TABEC PO SCH ×2 (09:24→20:40)
[2016-07-26] MEDS: SUCRALFATE 1 GM TAB PO SCH ×2 (09:24→20:40)
[2016-07-26] MEDS: VIT-B COMP/VIT-C/FOLIC ACID 1 TAB PO SCH (09:24)
[2016-07-26] MEDS: TAMSULOSIN 0.4 MG CAP PO SCH (09:24)
[2016-07-26] MEDS: ALLOPURINOL 100 MG TAB PO SCH ×2 (09:25→20:40)
[2016-07-26] MEDS: SODIUM CHLORIDE 1 GM TAB PO SCH ×2 (09:25→20:40)
[2016-07-26] MEDS: ENOXAPARIN 40 MG/0.4 ML SYR SUBQ SCH (09:27)
[2016-07-26] MEDS: ALBUMIN HUMAN 25% 100 ML IV SCH ×2 (09:53→20:39)
[2016-07-26] MEDS: MUPIROCIN 2% OINT 22 GM TUBE TP SCH ×2 (09:53→21:00)
[2016-07-26] MEDS: NACL 0.9% 1,000 ML IV SCH (09:54)
[2016-07-26] MEDS: CHLORHEXADINE GLUC 2% CLOTH TP SCH (09:54)
--- NOTE | 2016-07-26 10:16 | NUR ---
RECEIVED CALL FROM DR. PARSONS. UPDATED MD ON PATIENT CONDITION. PER MD, D/C PICC LINE AND RESTART ON VANCO PER PHARMACY. WILL FOLLOW UP ON ORDERS.
--- NOTE | 2016-07-26 10:30 | NUR ---
DR PARSONS MADE AWARE PT CAME INTO HOSPITAL WITH ARAGON. PER DR PARSONS, D/C ARAGON CATHETER ALSO. IF PATIENT NEEDS A ARAGON, OK TO REINSERT.
--- NOTE | 2016-07-26 12:00 | NUR ---
ARAGON CATHETER REMOVED PER DR. PARSONS REQUEST. PT TOLERATED WELL.
[2016-07-26] MEDS: MEROPENEM 500 MG in NACL 0.9% 50 ML IV SCH ×2 (12:09→20:09)
--- NOTE | 2016-07-26 12:10 | NUR ---
ARAGON CATHETER INSERTION ATTEMPTED. UNABLE TO INSERT.
--- NOTE | 2016-07-26 12:30 | NUR ---
ASSISTED PATIENT WITH MEAL TRAY.
--- NOTE | 2016-07-26 15:34 | NUR ---
UNABLE TO INSERT ARAGON CATHETER. WHITE PUS COMING OUT OF PENIS. DR STACI HODGSON.
--- NOTE | 2016-07-26 15:40 | NUR ---
RECEIVED CALLBACK FROM DR. SMALL. NOTIFIED MD THAT WE ARE UNABLE TO INSERT ARAGON, AND UPON ATTEMPTED INSERTION, THERE WAS WHITE PUS-LIKE DRAINAGE COMING OUT OF PENIS. PER MD, INCREASE IVF TO 80ML/HR, GET CULTURE OF PENILE DISCHARGE, AND KEEP ARAGON OUT AT THIS TIME. WILL FOLLOW UP WITH ORDERS.
--- NOTE | 2016-07-26 17:00 | NUR ---
PICC LINE D/C'D, PENILE DISCHARGE SWABBED FOR LAB. PT TOLERATED WELL.
--- NOTE | 2016-07-26 18:00 | NUR ---
PT CLEANED; TURNED AND REPOSITIONED.
[2016-07-26] MEDS: ONDANSETRON 4 MG/2 ML VIAL IVP PRN ×2 (18:21→22:50)
--- NOTE | 2016-07-26 19:10 | NUR ---
REPORT GIVEN TO SRIDHAR ALLEN.
--- NOTE | 2016-07-26 19:56 | NUR ---
PATIENT AAOX4, SR ON THE MONITOR, ON O2 AT 2LNC, IVF OF NS AT 80 ML/HR INFUSING TO IV SITE ON LEFT WRIST G#22, SKIN INTACT, WITH RIGHT SIDE WEAKNESS, NOTED WITH SWOLLEN PENILE/SCROTUM, DENIES PAIN, TURNED AND REPOSITIONED, NO SOB.
[2016-07-26] MEDS: SIMVASTATIN 20 MG TAB PO SCH (20:40)
[2016-07-26] MEDS: SENNA 8.6 MG TAB PO SCH (20:40)
--- NOTE | 2016-07-26 20:59 | NUR ---
DR. ASAD HART HERE TO SEE THE PATIENT, NEW ORDER GIVEN KUB STAT. KUB DONE AT BEDSIDE.
[2016-07-26] MEDS ORDERED: VANCOMYCIN 1GM/DEXT 5% PREMIX 200 ML IV SCH (21:00)
--- NOTE | 2016-07-26 21:06 | NUR ---
DR. PARSONS WAS HERE ALSO TO SEE THE PATIENT, NO NEW ORDER GIVEN.
--- NOTE | 2016-07-26 21:53 | NUR ---
CHECKED KUB RESULT: NO EVIDENCE OF BOWEL OBSTRUCTION.
--- NOTE | 2016-07-26 22:00 | NUR ---
PATIENT NAUSEATED, NO BOWEL MOVEMENT YET UP TO THIS TIME, DENIES PAIN, HOB ELEVATED.
--- NOTE | 2016-07-26 23:58 | NUR ---
ZOFRAN 4 MG IVP WAS GIVEN AT 2250, PATIENT VOMITED SMALL AMOUNT OF CLEAR VOMITUS.PATIENT VOIDED SMALL AMOUNT OF DARK YELLOW URINE AND COMPLAINING OF PAIN WHEN HE URINATES, NO PUS DRAINING ON THE MEATAL AREA, ASKED PATIENT IF HE WANTS THE ARAGON CATHETER BACK, PATIENT SAID "SI". ARAGON CATHETER REINSERTED WITH DARK YELLOW URINE DRAINING. TURNED AND REPOSITIONED, HOB SLIGHTLY ELEVATED, DENIES PAIN.
[2016-07-27] VITALS (16 sets, daily range): BP systolic 90–134; BP diastolic 52–72
--- NOTE | 2016-07-27 02:04 | NUR ---
PLACED PATIENT ON BIPAP 14, 14/8, AND 30% DUE TO WOB.
--- NOTE | 2016-07-27 02:16 | NUR ---
PATIENT WITH SHALLOW BREATHING, LUTHER/RT CALLED TO ASSESS THE PATIENT, BIPAP PLACED, ELEVATED HOB, DENIES PAIN. WILL CONTINUE TO MONITOR.
[2016-07-27] MEDS: NACL 0.9% 1,000 ML IV SCH (02:43)
[2016-07-27] MEDS: ALBUTEROL 0.083% 2.5 MG/3 ML NEBU INH PRN ×5 (04:01→23:18)
--- NOTE | 2016-07-27 04:11 | NUR ---
PATIENT TOLERATING BIPAP WELL. 3 PRN ALBUTEROL TREATMENTS GIVEN THROUGHOUT THE SHIFT.
--- NOTE | 2016-07-27 04:14 | NUR ---
BIPAP TOLERATING WELL, PATIENT RESTING COMFORTABLY, HOB ELEVATED.
[2016-07-27] MEDS: MEROPENEM 500 MG in NACL 0.9% 50 ML IV SCH ×3 (04:26→21:42)
[2016-07-27] MEDS ORDERED: SODIUM PHOSPHATE 118 ML ENEM RC SCH (06:10)
--- NOTE | 2016-07-27 06:15 | NUR ---
SPOKE WITH DR. SMALL AND UPDATED PATIENT'S CONDITION: KUB ORDERED BY DR. HART WITH NO BOWEL OBSTRUCTION. LACTULOSE AND SENOKOT GIVEN LAST NIGHT BUT NO BOWEL MOVEMENT UP TO THIS TIME, ABDOMEN IS DISTENDED. ARAGON CATH WAS REINSERTED DUE TO PATIENT MOANING FOR PAIN WHEN URINATING AND ONLY 20 MLS OUTPUT SINCE 12 MN, CREATININE AND BUN ELEVATED. PATIENT PLACED ON BIPAP DUE TO LABORED SHALLOW BREATHING. DR. SMALL GAVE ORDER TO GIVE FLEET ENEMA AND US KIDNEYS.
[2016-07-27 06:28] LABS: ANION GAP 22.1 (8-16); CREATININE 2.9 mg/dL (0.6-1.3); POTASSIUM 5.1 mmol/L (3.5-5.1)
[2016-07-27] MEDS: BLOOD GLUCOSE MONITORING 1 DEV DEV FS SCH ×4 (06:28→21:40)
[2016-07-27] MEDS: INSULIN LISPRO SLIDING SCALE 100 UNITS/ML VIAL SUBQ PRN ×4 (06:29→22:29)
--- NOTE | 2016-07-27 06:56 | NUR ---
FLEETS ENEMA GIVEN.
[2016-07-27 07:11] LABS: HEMATOCRIT 22.1 % (36-52); HEMOGLOBIN 7.2 g/dL (12.0-18.0); MEAN CORPUSCULAR HEMOGLOBIN 28 pg (27-31); MEAN CORPUSCULAR HGB CONC 33 g/dL (33-37); MEAN CORPUSCULAR VOLUME 86 fL (80-94); PLATELET COUNT (AUTO) 377 K/uL (140-450); RED BLOOD CELL COUNT(AUTO) 2.58 MIL/uL (4.20-6.10); WHITE BLOOD COUNT (AUTO) 13.4 K/uL (4.8-10.8)
--- NOTE | 2016-07-27 07:19 | NUR ---
DR. MAO (RENAL) HERE TO SEE THE PATIENT, REPORTED NA+ 122, CREATININE 2.9, BUN 61.
[2016-07-27] MEDS ORDERED: FUROSEMIDE 100 MG/10 ML VIAL IV SCH (07:20)
--- NOTE | 2016-07-27 07:22 | NUR ---
REPORT GIVEN TO PORTIA NAILS/SRIDHAR.
--- NOTE | 2016-07-27 07:25 | NUR ---
RECEIVED REPORT FROM SRIDHAR ALLEN. NO SIGNS OF ACUTE DISTRESS AT THIS TIME, NO C/O PAIN. PT IS ON BIPAP, IPAP: 12, EPAP: 8, FIO2: 30%. PT IS AAOX4. IV TO LEFT WRIST #22, PATENT AND INTACT. SKIN IS INTACT. SWOLLEN NOTED TO SCROTUM. ARAGON CATHETER IN PLACE DRAINING TO GRAVITY DRAINAGE BAG. PT IS ON CONTACT ISOLATION WITH SIGNS POSTED OUTSIDE OF PT'S ROOM. SAFETY PRECAUTIONS IN PLACE WITH BED IN LOWEST POSITION AND SIDE RAILS UP. CALL LIGHT WITHIN REACH. WILL CONTINUE TO MONITOR.
--- NOTE | 2016-07-27 07:34 | NUR ---
DR. MINA IN TO SEE PT. WILL FOLLOW UP ON ORDERS.
[2016-07-27 07:39] LABS: BAND % (MANUAL) 7 % (0-8); LYMPHOCYTES % (MANUAL) 6 % (20-46); MONOCYTES % (MANUAL) 6 % (5-12); NEUTROPHILS % (MANUAL) 81 (43-65)
--- NOTE | 2016-07-27 07:47 | NUR ---
RECEIVED TELEPHONE CONSENT FROM FOR YESSI CATHETER PLACEMENT AND HEMODIALYSIS. VERIFIED CONSENT WITH A SECOND RN. CONSENT SIGNED AND PLACED IN PT'S CHART.
[2016-07-27] MEDS: LACTULOSE 20 GM/30 ML UDC PO SCH ×3 (08:08→21:43)
[2016-07-27] MEDS: SODIUM CHLORIDE 1 GM TAB PO SCH ×2 (08:08→21:42)
[2016-07-27] MEDS: FERROUS SULFATE 325 MG TABEC PO SCH ×2 (08:08→21:43)
[2016-07-27] MEDS: TAMSULOSIN 0.4 MG CAP PO SCH (08:08)
[2016-07-27] MEDS: VIT-B COMP/VIT-C/FOLIC ACID 1 TAB PO SCH (08:08)
[2016-07-27] MEDS: SUCRALFATE 1 GM TAB PO SCH ×2 (08:08→21:43)
[2016-07-27] MEDS: ALLOPURINOL 100 MG TAB PO SCH ×2 (08:09→21:43)
[2016-07-27] MEDS: CHLORHEXADINE GLUC 2% CLOTH TP SCH (08:10)
[2016-07-27] MEDS: MUPIROCIN 2% OINT 22 GM TUBE TP SCH ×2 (08:10→21:57)
[2016-07-27] MEDS: ENOXAPARIN 40 MG/0.4 ML SYR SUBQ SCH (08:10)
--- NOTE | 2016-07-27 08:15 | NUR ---
AWAKE AND ALERT RESPONSIVE PER Heron PINTO RCP PATIENT REMOVED FROM BIPAP TO MASK EARLIER BY SRIDHAR PEARCE FOR MORNING FOOD TRAY AND PLACED ON SUPPLEMENTAL OXYGEN AT 2 LPM VIA NC RN AT BEDSIDE FOR PATIENT PHYSICAL HYGIENE CLINICAL SOCIOLOGIST TO ATTEMPT HHN PRN THERAPY AT A LATER TIME
--- NOTE | 2016-07-27 08:24 | NUR ---
PT TOLERATED MEDS WELL. PT PLACED ON O2 2L/MIN NC. SATTING AT 98%. WILL CONTINUE TO MONITOR.
--- NOTE | 2016-07-27 08:45 | NUR ---
PT OFF OF BIPAP AT THIS TIME ON 2L NASAL CANNULA. SPO2 96%. PT IS NOT SOB AND NOT IN RESPIRATORY DISTRESS.PRN ALBUTEROL 2.5 MG ADMINISTERED. WILL CONTINUE TO MONITOR.
[2016-07-27 08:52] LABS: LACTIC ACID 0.7 mmol/L (0.4-2.0)
--- NOTE | 2016-07-27 08:55 | NUR ---
PT HAD MODERATE-SIZED BOWEL MOVEMENT, SOFT AND BROWN IN COLOR. PROVIDED HYGIENE CARE AND TURNED AND REPOSITIONED FOR COMFORT. CALL LIGHT WITHIN REACH. WILL CONTINUE TO MONITOR.
--- NOTE | 2016-07-27 09:14 | NUR ---
PT'S PRESENT AT BEDSIDE.
--- NOTE | 2016-07-27 09:15 | NUR ---
DR. CRUZ IN TO SEE PT. AWARE OF LOW HEMOGLOBIN: 7.2
--- NOTE | 2016-07-27 09:21 | NUR ---
DR. HARPER IN TO SEE PT FOR YESSI CATHETER PLACEMENT FOR HEMODIALYSIS. WILL FOLLOW UP ON ORDERS.
--- NOTE | 2016-07-27 10:03 | NUR ---
TIME OUT CALLED, YESSI CATHETER PLACED TO RIGHT IJ X2 LUMEN. PT TOLERATED WELL. DRESSING APPLIED. PRODUCT SAFETY LEAD PRESENT TO CONFIRM PLACEMENT.
[2016-07-27 10:06] LABS: INR 1.3 (0.8-1.2); PARTIAL THROMBOPLASTIN TIME 39.2 secs (22-35.6); PROTHROMBIN TIME 12.7 secs (10.8-13.4)
--- NOTE | 2016-07-27 10:15 | NUR ---
CONSENT FOR BLOOD TRANSFUSION SIGNED AND PLACED IN PT'S CHART.
--- NOTE | 2016-07-27 10:28 | NUR ---
CALLED EVY KOHLER FOR SCHEDULED HEMODIALYSIS. WILL BE IN LATER TODAY.
[2016-07-27 11:16] LABS: ALBUMIN 2.2 g/dL (3.4-5.0); ANION GAP 17.5 (8-16); CARBON DIOXIDE 17.2 mmol/L (21-32); CREATININE 3.1 mg/dL (0.6-1.3); POTASSIUM 4.7 mmol/L (3.5-5.1); TOTAL BILIRUBIN 0.4 mg/dL (0.0-1.0); TOTAL PROTEIN, SERUM 7.2 g/dL (6.4-8.2)
[2016-07-27] MEDS: ONDANSETRON 4 MG/2 ML VIAL IVP PRN (11:52)
--- NOTE | 2016-07-27 12:09 | NUR ---
PT C/O NAUSEA. ADMINISTERED ZOFRAN ORDERED. BLOOD VERIFIED BY TWO RN'S. ALL BASELINE VSS STABLE. BLOOD GIVEN TO SIDRA PIÑA RN TO BE GIVEN DURING DIALYSIS.
--- NOTE | 2016-07-27 13:00 | NUR ---
BLOOD TRANSFUSION COMPLETE, NO REACTION NOTED. PT CONTINUES TO RECEIVE HD TREATMENT
--- NOTE | 2016-07-27 13:43 | NUR ---
UNABLE TO GIVE MERREM AT THIS TIME PT IS RECEIVING HD. WILL ADMINISTER AFTER COMPLETION.
--- NOTE | 2016-07-27 14:45 | NUR ---
HD COMPLETE. 1L OUTPUT. PT TOLERATED WELL.
--- NOTE | 2016-07-27 14:51 | NUR ---
PT TOLERATED MEDS WELL.
--- NOTE | 2016-07-27 15:48 | NUR ---
CHECKED ON PT. RESTING AT THIS TIME, AROUSABLE. CALL LIGHT WITHIN REACH.
--- NOTE | 2016-07-27 16:17 | NUR ---
PT TOLERATED MEDS WELL.
--- NOTE | 2016-07-27 18:59 | NUR ---
DR. Alexandr HART IN TO SEE PT. WILL FOLLOW UP ON ORDERS
--- NOTE | 2016-07-27 19:18 | NUR ---
ENDORSED CARE TO SRIDHAR HERNANDEZ. PT IN STABLE CONDITION.
--- NOTE | 2016-07-27 19:19 | NUR ---
RECEIVED REPORT FROM SRIDHAR PEARCE. INITIAL ASSESSMENT COMPLETED. PT IS AWAKE ALERT ORIENTED X4. PT IS ON O2 @ 2LPM VIA NASAL CANNULA. YESSI CATH AT RIGHT IJ DOUBLE LUMEN. IV ACCESS AT LEFT WRIST 22G SALINE LOCK, PATENT, INTACT AT THIS TIME. ATTACHED TO CLEANING SPECIALIST, PULSE OXIMETER. PT NOTED TO BE EDEMATOUS. ARAGON CATH IN PLACE. BIPAP AT BEDSIDE. SAFETY MEASURE ENSURE, BED IN LOW POSITION , CONTACT PRECAUTION MAINTAIN. WILL CONTINUE TO MONITOR.
[2016-07-27] MEDS: SENNA 8.6 MG TAB PO SCH (21:43)
[2016-07-27] MEDS: SIMVASTATIN 20 MG TAB PO SCH (21:43)
--- NOTE | 2016-07-27 22:05 | NUR ---
PT WANTS BI-PAP ON. HAS MILD SOB
--- NOTE | 2016-07-27 22:15 | NUR ---
DR. PARSONS IN TO SEE PATIENT. WILL FOLLOW UP ORDERS.
[2016-07-28] VITALS (12 sets, daily range): BP systolic 110–121; BP diastolic 65–81
--- NOTE | 2016-07-28 01:30 | NUR ---
PT ASLEEP AT THIS TIME. NO SIGNS OF DISTRESS NOTED. WILL CONTINUE TO MONITOR.
--- NOTE | 2016-07-28 02:15 | NUR ---
PT HAD SMALL AMOUNT OF BROWN PASTY STOOL.
[2016-07-28] MEDS: ALBUTEROL 0.083% 2.5 MG/3 ML NEBU INH PRN ×2 (03:16→07:23)
--- NOTE | 2016-07-28 03:34 | NUR ---
PT STILL ON BIPAP, NO SIGNS OF SOB. O2 SAT 100%. PT ASLEEP. WILL CONTINUE TO MONITOR.
[2016-07-28] MEDS: MEROPENEM 500 MG in NACL 0.9% 50 ML IV SCH ×3 (05:05→20:58)
[2016-07-28 05:17] LABS: HEMATOCRIT 25.2 % (36-52); HEMOGLOBIN 8.2 g/dL (12.0-18.0); MEAN CORPUSCULAR HEMOGLOBIN 28 pg (27-31); MEAN CORPUSCULAR HGB CONC 33 g/dL (33-37); MEAN CORPUSCULAR VOLUME 86 fL (80-94); PLATELET COUNT (AUTO) 396 K/uL (140-450); RED BLOOD CELL COUNT(AUTO) 2.94 MIL/uL (4.20-6.10); RED CELL DISTRIBUTION WIDTH 14.5 % (11.6-13.7); WHITE BLOOD COUNT (AUTO) 13.1 K/uL (4.8-10.8)
--- NOTE | 2016-07-28 05:35 | NUR ---
PT REFUSED MORNING CARE. HE SAID HE IS OK AND DOES NOT WANT MORNING CARE AT THIS TIME.
[2016-07-28 05:38] LABS: BAND % (MANUAL) 1 % (0-8); EOSINOPHILS % (MANUAL) 7 % (0-4); LYMPHOCYTES % (MANUAL) 4 % (20-46); MONOCYTES % (MANUAL) 3 % (5-12); NEUTROPHILS % (MANUAL) 85 (43-65)
[2016-07-28 06:26] LABS: ANION GAP 14.4 (8-16); CALCIUM 8.2 mg/dL (8.5-10.1); CARBON DIOXIDE 23.5 mmol/L (21-32); CREATININE 2.2 mg/dL (0.6-1.3); POTASSIUM 3.9 mmol/L (3.5-5.1)
[2016-07-28] MEDS: BLOOD GLUCOSE MONITORING 1 DEV DEV FS SCH ×4 (06:53→20:57)
--- NOTE | 2016-07-28 07:10 | NUR ---
REPORT GIVEN TO SRIDHAR MCNALLY FOR CONTINUITY OF CARE. NO SIGNS OF SOB, NO DISTRESS NOTED.
--- NOTE | 2016-07-28 07:15 | NUR ---
RECEIVED PT FROM SRIDHAR HERNANDEZ. PT SEEN AT BEDSIDE SLEEPING. ON BIPAP WITH NO S/S DISTRESS OR SOB. ABLE TO FOLLOW COMMANDS. PT HAS CHARGING CRANE OPERATOR PLACED RUNNING AF AT THIS TIME. LEFT WRIST 22G SALINE LOCKED. RIGHT IJ DOUBLE LUMEN DIALYSIS CATH NOTED. PT HAS +2 EDEMA ON RUE/RLE AND +1 EDEMA ON LUE/LLE. PENILE AND SCROTAL EDEMA +[address] PL[address] DRAINING CLEAR, YELLOW URINE. PT HAS HX OF CVA AND IS UNABLE TO RIGHT SIDE. PT ABLE TO MOVE LEFT SIDE. PT TURNED AND REPOSITIONED FOR COMFORT. WILL CONTINUE TO MONITOR.
--- NOTE | 2016-07-28 07:24 | NUR ---
RECEIVED ON A BIPAP VISION PLUGGED INTO RED OUTLET TOLERATING WELL WITHOUT INCIDENT TO A LARGE FACIAL MASK SECURED WITH HEAD STRAP ASSESSMENT DONE NOTED
--- NOTE | 2016-07-28 08:23 | NUR ---
ASKED MARY JO, PHARMACY, WHEN PT'S NEXT DOSE OF VANCO IS. PER MARY JO, SHE WILL CALL ME BACK.
--- NOTE | 2016-07-28 09:45 | NUR ---
DR CRUZ AT BEDSIDE ASSESSING AND TALKING TO PATIENT. UPDATED MD ON PATIENT CONDITION. PER DR CRUZ, PT IS OK TO TRANSFER TO TELE. WILL FOLLOW UP.
--- NOTE | 2016-07-28 09:45 | NUR ---
AWAKE AND ALERT NO EVIDENCE OF RESPIRATORY DISTRESS NOTED BREATH SOUNDS CLEAR LEFT SIDE RUL RML; RLL INS/EXP RALES GOOD CHEST RISE SATURATION 100% ON BIPAP FIO2 30% HR 108 RR22 REMOVED FROM BIPAP TO MASK AT THIS TIME FOR PO MEDICATION GIVEN BY ULI/RN AND MORNING MEAL TRAY PLACED ON SUPPLEMENTAL OXYGEN AT 2 LPM VIA NC PRESCHOOL HEAD TEACHER TO MONITOR RESPIRATORY DISTRESS THROUGHOUT DAY SHIFT
[2016-07-28] MEDS: LACTULOSE 20 GM/30 ML UDC PO SCH ×2 (09:48→09:49)
[2016-07-28] MEDS: SUCRALFATE 1 GM TAB PO SCH ×2 (09:49→20:59)
[2016-07-28] MEDS: VIT-B COMP/VIT-C/FOLIC ACID 1 TAB PO SCH (09:49)
[2016-07-28] MEDS: SODIUM CHLORIDE 1 GM TAB PO SCH ×2 (09:49→20:59)
[2016-07-28] MEDS: TAMSULOSIN 0.4 MG CAP PO SCH (09:49)
[2016-07-28] MEDS: ALLOPURINOL 100 MG TAB PO SCH ×2 (09:50→20:59)
[2016-07-28] MEDS: MUPIROCIN 2% OINT 22 GM TUBE TP SCH ×2 (09:50→21:21)
[2016-07-28] MEDS: FERROUS SULFATE 325 MG TABEC PO SCH ×2 (09:50→20:59)
[2016-07-28] MEDS: CHLORHEXADINE GLUC 2% CLOTH TP SCH (09:50)
[2016-07-28] MEDS: ENOXAPARIN 40 MG/0.4 ML SYR SUBQ SCH (09:51)
--- NOTE | 2016-07-28 10:15 | NUR ---
PT HAD LARGE BM. PT CLEANED, GOWN CHANGED, TURNED AND REPOSITIONED. OB STOOL COLLECTED AND SENT TO LAB. CALL LIGHT LEFT AT BEDSIDE. WILL CONTINUE TO MONITOR.
--- NOTE | 2016-07-28 11:15 | NUR ---
[facility], CALLED BY SRIDHAR DILLARD, TO SCHEDULE HD FOR TODAY. PER RATLIFF, THEY WILL BE HERE AT 1:00 TO 2:00PM.
[2016-07-28] MEDS: INSULIN LISPRO SLIDING SCALE 100 UNITS/ML VIAL SUBQ PRN ×3 (12:18→20:50)
--- NOTE | 2016-07-28 12:36 | NUR ---
FAXED [place]CURRENT REVIEW TO [facility] [place] [phone] PHONE TIEN [phone]
--- NOTE | 2016-07-28 13:39 | NUR ---
DR SPRAGUE AT NURSING STATION. UPDATED MD ON PATIENT CONDITION. PER MD, OK TO TRANSFER TO TELE.
--- NOTE | 2016-07-28 13:42 | NUR ---
AGA, PMO BUSINESS ANALYST SETTING UP FOR HD AT BEDSIDE.
--- NOTE | 2016-07-28 13:48 | NUR ---
PT'S VISITING. UPDATED HER THAT PATIENT WILL BE TRANSFERRED TO [facility] AFTER DIALYSIS.
--- NOTE | 2016-07-28 15:00 | NUR ---
NO S/S DISTRESS; PT STILL RECEIVING HD AT THIS TIME. WILL CONTINUE TO MONITOR.
--- NOTE | 2016-07-28 17:57 | NUR ---
PT FINISHED WITH HD. OUTPUT -2L. PT TOLERATED WELL. WILL CONTINUE TO MONITOR.
--- NOTE | 2016-07-28 19:10 | NUR ---
PT WAS TRANSFERRED TO UNIT FROM ICU. PT AAOX4. PT HAS IV TO LEFT WRIST 22 G. PT HAS RIGHT IJ YESSI DOUBLE LUMEN CATH FOR DIALYSIS. PT'S SKIN IS INTACT. PT HAS UPPER AND LOWER EXTREMITIES EDEMA. PT HAS A ARAGON CATHETER IN PLACE. PT ON O2 2L NC. ORIENTED PT TO ROOM AND SURROUNDINGS AND USE OF CALL LIGHT. EXPLAINED PLAN OF CARE TO PT AND HE VERBALIZES UNDERSTANDING. SAFETY/FALL RISK PRECAUTIONS IN PLACE. CALL LIGHT WITHIN REACH.
--- NOTE | 2016-07-28 19:10 | NUR ---
PT TRANSFERRED TO [facility] WITH PORTABLE WINDOW DECORATOR. PT PLACED ON TELE MONITOR WITH NIGHT RN AT BEDSIDE. WILL CONTINUE TO MONITOR.
--- NOTE | 2016-07-28 19:19 | NUR ---
ENDORSED PLAN OF CARE TO NIGHT RN. PT REMAINS IN STABLE CONDITION.
--- NOTE | 2016-07-28 20:11 | NUR ---
RT AT BEDSIDE, WILL PUT PT ON BI PAP. PT STATES HE FEELS GOOD WITH BIPAP. WILL CONTINUE TO MONITOR PT.
[2016-07-28] MEDS: SENNA 8.6 MG TAB PO SCH (20:59)
[2016-07-28] MEDS: SIMVASTATIN 20 MG TAB PO SCH (20:59)
--- NOTE | 2016-07-28 21:12 | NUR ---
PT TOLERATED 2100 MEDS WELL. CALL LIGHT WITHIN REACH. WILL CONTINUE TO MONITOR PT.
--- NOTE | 2016-07-28 23:15 | NUR ---
PT STABLE, NO SIGNS OF DISTRESS/DISCOMFORT NOTED. WILL CONTINUE TO MONITOR PT.
[2016-07-29] VITALS: BP 121/78
--- NOTE | 2016-07-29 01:30 | NUR ---
PT COMPLAINING OF IV HURTING. WILL START A NEW IV.
--- NOTE | 2016-07-29 01:45 | NUR ---
IV REMOVED WITH TIP INTACT. NEW IV STARTED IN LEFT WRIST 24 G. PT TOLERATED IT WELL. WILL CONTINUE TO MONITOR PT.
[2016-07-29 04:00] VITALS: BP 116/58
--- NOTE | 2016-07-29 04:10 | NUR ---
PATIENT REQUESTED TO BE TAKEN OFF BIPAP, PLACED ON N/C 2LPM
--- NOTE | 2016-07-29 04:10 | NUR ---
RT AT BEDSIDE. PT REQUESTED TO HAVE BIPAP REMOVED. PT ON 02 2L NC. SATURATION 98%. CALL LIGHT WITHIN REACH.
[2016-07-29] MEDS: MEROPENEM 500 MG in NACL 0.9% 50 ML IV SCH ×3 (04:28→21:38)
--- NOTE | 2016-07-29 04:45 | NUR ---
0500 MERREM INFUSING AT THIS TIME. PT'S VS STABLE, WILL CONTINUE TO MONITOR PT.
[2016-07-29 06:18] LABS: HEPATITIS A ANTIBODY IGM Negative (Negative); HEPATITIS A ANTIBODY TOTAL Positive (Negative); HEPATITIS B CORE AB TOTAL Negative (Negative); HEPATITIS B CORE, IGM Negative (Negative); HEPATITIS B SURFACE AB Non Reactive (.); HEPATITIS B SURFACE ANTIGEN Negative (Negative); HEPATITIS C VIRUS ANTIBODY 0.1 s/co ratio (0.0-0.9)
[2016-07-29] MEDS: BLOOD GLUCOSE MONITORING 1 DEV DEV FS SCH ×4 (06:39→21:05)
--- NOTE | 2016-07-29 06:53 | NUR ---
PT HAS BEEN TURNED/REPOSITIONED Q2H THOROUGH OUT THE SHIFT WITH HELP OF MEJIA GAN. CALL LIGHT WITHIN REACH.
--- NOTE | 2016-07-29 07:10 | NUR ---
ENDORSED PLAN OF CARE TO SRIDHAR MANNING. PT IN STABLE CONDITION.
--- NOTE | 2016-07-29 07:15 | NUR ---
RECEIVED PT REPORT AT BEDSIDE. PATIENT IS A/O X 4 WITH NO SIGNS OR SYMPTOMS OF DISTRESS. PATIENT ON O2 3L NASAL CANULA. PT HAS ARAGON CATHETER IN PLACE DRAINING YELLOW URINE. PT IV SITE IS NOTED ON LEFT WRIST SALINE LOCKED. BED IS LOWERED WITH CALL LIGHT WITHIN REACH. WILL CONTINUE TO MONITOR.
--- NOTE | 2016-07-29 07:15 | NUR ---
PT HAS BUE AND BLE 2+ PITTING EDEMA. EXTREMITIES WERE ELEVATED.
--- NOTE | 2016-07-29 07:21 | NUR ---
ENDORSED PLAN OF CARE TO SRIDHAR MANNING. PT IN STABLE CONDITION.
[2016-07-29 08:00] VITALS: BP 108/68
[2016-07-29] MEDS: FERROUS SULFATE 325 MG TABEC PO SCH ×2 (08:14→21:37)
[2016-07-29] MEDS: TAMSULOSIN 0.4 MG CAP PO SCH (08:14)
[2016-07-29] MEDS: SUCRALFATE 1 GM TAB PO SCH ×2 (08:14→21:37)
[2016-07-29] MEDS: VIT-B COMP/VIT-C/FOLIC ACID 1 TAB PO SCH (08:14)
[2016-07-29] MEDS: SODIUM CHLORIDE 1 GM TAB PO SCH ×2 (08:15→21:36)
[2016-07-29] MEDS: ALLOPURINOL 100 MG TAB PO SCH ×2 (08:15→21:38)
[2016-07-29] MEDS: LACTULOSE 20 GM/30 ML UDC PO SCH (08:15)
[2016-07-29] MEDS: ALBUTEROL 0.083% 2.5 MG/3 ML NEBU INH PRN (08:17)
[2016-07-29] MEDS: ENOXAPARIN 40 MG/0.4 ML SYR SUBQ SCH (08:25)
[2016-07-29 08:34] LABS: CARBON DIOXIDE 25.2 mmol/L (21-32); CREATININE 1.9 mg/dL (0.6-1.3); POTASSIUM 4.2 mmol/L (3.5-5.1)
[2016-07-29] MEDS ORDERED: VANCOMYCIN 1GM/DEXT 5% PREMIX 200 ML IV SCH (09:00)
--- NOTE | 2016-07-29 09:00 | NUR ---
TESTICULAR EDEMA NOTED. TESTICLES ELEVATED PER ORDER. PT REPOSITIONED. PT TOLERATED WELL.
[2016-07-29] MEDS ORDERED: CEP30L PO (09:31)
[2016-07-29] MEDS ORDERED: FURO40TA9 PO (09:31)
[2016-07-29] MEDS ORDERED: PRON INH (09:31)
[2016-07-29] MEDS ORDERED: NEP PO (09:31)
[2016-07-29] MEDS ORDERED: LOV40I SUBQ (09:31)
[2016-07-29] MEDS ORDERED: SIMV20TA6 PO (09:31)
[2016-07-29] MEDS ORDERED: FERR-18 PO (09:31)
[2016-07-29] MEDS ORDERED: HUMSLIDE SUBQ (09:31)
[2016-07-29] MEDS ORDERED: SAL1 PO (09:31)
[2016-07-29] MEDS ORDERED: POLY17PD46 PO (09:31)
[2016-07-29] MEDS ORDERED: ALLO100T21 PO (09:31)
[2016-07-29] MEDS ORDERED: TAMS0.4C96 PO (09:31)
[2016-07-29] MEDS ORDERED: SUCR1TAB35 PO (09:31)
[2016-07-29 10:04] LABS: HEMATOCRIT 24.6 % (36-52); MEAN CORPUSCULAR HEMOGLOBIN 28 pg (27-31); MEAN CORPUSCULAR HGB CONC 33 g/dL (33-37); MEAN CORPUSCULAR VOLUME 85 fL (80-94); PLATELET COUNT (AUTO) 451 K/uL (140-450); RED BLOOD CELL COUNT(AUTO) 2.88 MIL/uL (4.20-6.10); RED CELL DISTRIBUTION WIDTH 14.6 % (11.6-13.7); WHITE BLOOD COUNT (AUTO) 13.2 K/uL (4.8-10.8)
[2016-07-29 10:16] LABS: ALBUMIN 1.9 g/dL (3.4-5.0); ANION GAP 11.9 (8-16); CALCIUM 8.2 mg/dL (8.5-10.1); CARBON DIOXIDE 26.4 mmol/L (21-32); CREATININE 1.9 mg/dL (0.6-1.3); POTASSIUM 4.3 mmol/L (3.5-5.1); TOTAL BILIRUBIN 0.4 mg/dL (0.0-1.0); TOTAL PROTEIN, SERUM 6.8 g/dL (6.4-8.2)
[2016-07-29 10:27] LABS: EOSINOPHILS % (MANUAL) 11 % (0-4); LYMPHOCYTES % (MANUAL) 8 % (20-46); MONOCYTES % (MANUAL) 5 % (5-12); NEUTROPHILS % (MANUAL) 76 (43-65)
--- NOTE | 2016-07-29 11:43 | NUR ---
SPOKE WITH DR CRUZ ABOUT OUT PATIENT DIALYSIS. SHE SAID SHE WOULD CONTACT THE SPANISH TEACHER TO SEE IF HE WANTED PATIENT SET UP FOR OP DIALYSIS. I DID CALL SANJANA AT [facility] AND TOLD HER ABOUT THE PATIENT, BUT AT PRESENT WE DIDN'T HAVE ORDER FROM SPANISH TEACHER FOR OP DIALYSIS. SHE SAID IF OP HD ORDER, SHE WOULD NEED THE H&P, SPANISH TEACHER CONSULT, INCLUDING STATING ESRD, THE DIALYSIS FLOW SHEETS, OPERATIVE REPORT FROM INSERTION OF TUNNELING HD CATHETER, MED SHEET, CHEST XRAY, SHOWING NO TB, LABS, MED LIST AND ORDER FOR OP HD. PHONE FOR [facility], SANJANA [phone] FAX [phone]
[2016-07-29] MEDS: INSULIN LISPRO SLIDING SCALE 100 UNITS/ML VIAL SUBQ PRN ×3 (11:56→21:49)
[2016-07-29 12:00] VITALS: BP 107/62
--- NOTE | 2016-07-29 12:49 | NUR ---
07/29/16 RD INITIAL ASSESSMENT COMPLETED PLEASE REFER TO NUTRITION ASSESSMENT UNDER CARE ACTIVITY FOR ESTIMATED NUTRITIONAL NEEDS. RD RECOMMENDATIONS: 1. RECOMMEND ADDING RENAL FEATURES TO CURRENT PUREE DIET D/T PT ESRD ON HD 2. RD PROVIDED PT WITH EDUCATION ON ESRD ON HD DIET 3. RD WILL F/U 3-5 DAYS; MODERATE RISK. HUONG ALTAMIRANO RD
--- NOTE | 2016-07-29 13:03 | NUR ---
FAXED CONCURRENT REVIEW TO [facility] [place] [place] [phone] PHONE TIEN [phone] PERICO SALAZAR ABOUT OP HD. HE SAID HE WOULD SPEAK WITH MARY ALLAN . I INFORMED HIM THAT PATIENT HAS A YESSI CATH IN. I ALSO INFORMED HIM THAT [facility] CANNOT TAKE THIS PATIENT BACK BECAUSE OF THE ISOLATION. I LEFT A MESSAGE FOR SANJANA AT [facility] AND FAXED H&P, CONSULT FROM [facility], LABS, MED SHEET, DIALYSIS FLOW SHEET, HEPATITIS PANEL, [facility]. FAXED TO [phone].
--- NOTE | 2016-07-29 13:08 | NUR ---
OBTAINED CONSENT FOR PICC LINE PLACEMENT FROM THE PATIENT. CONSENT FILED IN THE CHART
--- NOTE | 2016-07-29 13:13 | NUR ---
CALLED EV[facility] KOHLER REGARDING HEMODIALYSIS ORDERED FOR PATIENT TODAY. LEFT VOICE MESSAGE. WAITING FOR CALL BACK CONFIRMATION
--- NOTE | 2016-07-29 14:15 | NUR ---
SS NOTE: I SPOKE WITH PT AND PT'S , FLORI BEDSIDE WITH SRIDHAR MANNING TO TRANSLATE. I INFORMED THEM THAT [facility] DOES NOT HAVE AN ISO BED AVAILABLE FOR PT AT THIS TIME AND WE HAVE CONTACTED OTHER INSURANCE CONTRACTED FACILITIES TO FIND PLACEMENT FOR PT. FLORI INQUIRED ABOUT THE OPTION TO TAKE PT HOME, I INFORMED HER THAT PT WILL REQUIRE A LOT OF ADDITIONAL CARE AND IT MAY NOT BE A SAFE DISCHARGE PLAN FOR PT TO GO DIRECTLY HOME UPON DISCHARGE. SHE REPORTED THAT PT LIVED AT HOME WITH HER AND THEIR 2 YEAR OLD GRANDCHILD SO SHE WILL NOT BE ABLE TO HELP PT WITH ADLS AND IV ABX AT THIS TIME. SHE ALSO REPORTED THAT SHE IS IN AGREEMENT WITH PT GOING TO [facility].
--- NOTE | 2016-07-29 14:57 | NUR ---
SS NOTE: SENT SNF PLACEMENT INQUIRIES TO: - [facility] Addendum: 07/29/16 at 1517 by Erin Cook SS PER BLANCA FROM [facility], NO ISO BEDS AVAILABLE
--- NOTE | 2016-07-29 15:00 | NUR ---
PICC LINE INSERTED TO LEFT UPPER ARM. WILL ORDER XRAY TO VERIFY PLACEMENT.
[2016-07-29 16:00] VITALS: BP 120/78
[2016-07-29] MEDS: CARVEDILOL 6.25 MG TAB PO SCH (17:13)
--- NOTE | 2016-07-29 18:26 | NUR ---
CALLED [facility] TO F/U HD ORDERED FOR THE PATIENT. ORDER ACKNOWLEDGED
[2016-07-29] MEDS ORDERED: VANCOMYCIN PER PHARMACY MC PRN (19:10)
--- NOTE | 2016-07-29 19:26 | NUR ---
PT REPORT GIVEN AT BEDSIDE. PT RESTING. PT ENDORSED IN STABLE CONDITION
--- NOTE | 2016-07-29 19:27 | NUR ---
RECEIVED REPORT FROM DAY RN FOR CONTINUITY OF CARE. PATIENT IS A&OX4 NAURUAN SPEAKING, DISCUSSED PLAN OF CARE WITH PATIENT, VERBALIZED UNDERSTANDING. SHIFT ASSESSMENT DONE, VS TAKEN, STABLE. PT CURRENTLY ON 2L NC, REQUESTS TO BE PUT ON BIPAP FOR DIFFICULTY BREATHING, PAGED RT. O2 SAT AT 97-99%. PATIENT DENIES PAIN AT THIS TIME. PT HAS RT IJ YESSI CATHETER DOUBLE LUMEN, DIALYSIS TO BE DONE TONIGHT. PT ALSO HAS PICC LINE TO LT UPPER ARM INTACT. BUE AND BLE EDEMA PITTING +2, SCROTAL EDEMA NOTED. ARAGON CATHETER IN PLACE DRAINING LIGHT ANGELINE URINE. SAFETY/ FALL/ CONTACT PRECAUTIONS ENFORCED. CALL LIGHT WITHIN REACH. WILL CONTINUE TO MONITOR.
[2016-07-29 20:00] VITALS: BP 114/67
[2016-07-29] MEDS ORDERED: LOSARTAN 25 MG TAB PO SCH (21:00)
[2016-07-29] MEDS: SENNA 8.6 MG TAB PO SCH (21:37)
[2016-07-29] MEDS: SIMVASTATIN 20 MG TAB PO SCH (21:37)
--- NOTE | 2016-07-29 21:38 | NUR ---
DUE MEDICATIONS ADMINISTERED, TOLERATED WELL. RETURNED PT TO BIPAP MASK AND MADE COMFORTABLE. DIALYSIS NURSE AT BEDSIDE. WILL CONTINUE TO MONITOR.
--- NOTE | 2016-07-29 23:30 | NUR ---
PATIENT REMOVED BIPAP, PLACED ON 2L NC. O2 SAT AT 100% NO S/S OF DISTRESS NOTED.
--- NOTE | 2016-07-29 23:35 | NUR ---
BIPAP STBY, PATIENT REQUESTED TO BE TAKEN OFF. ON NC 2LPM
--- NOTE | 2016-07-29 23:50 | NUR ---
VS TAKEN, STABLE. PT C/O CONSTIPATION ADMINISTERED MIRALAX PER MD ORDER WITH JUICE. DIALYSIS NURSE AT BEDSIDE FINISHING UP.
[2016-07-30] VITALS (7 sets, daily range): BP systolic 96–129; BP diastolic 56–68
--- NOTE | 2016-07-30 02:00 | NUR ---
PT IS SLEEPING. NO S/S OF DISTRESS NOTED ON BIPAP.
--- NOTE | 2016-07-30 03:04 | NUR ---
PT REQUESTED TO GO BACK ON BIPAP. PAGED RT.
[2016-07-30] MEDS: MEROPENEM 500 MG in NACL 0.9% 50 ML IV SCH ×3 (05:18→20:47)
--- NOTE | 2016-07-30 05:18 | NUR ---
DUE ANTIBIOTICS ADMINISTERED, NO REACTION NOTED.
[2016-07-30] MEDS: BLOOD GLUCOSE MONITORING 1 DEV DEV FS SCH ×4 (06:20→20:56)
--- NOTE | 2016-07-30 06:20 | NUR ---
PT REMOVED BIPAP PLACED ON 2L NC. BLOOD SUGAR 139, NO COVERAGE NEEDED.
--- NOTE | 2016-07-30 07:09 | NUR ---
ASSUMED CONTINUITY OF CARE. NO SIGNS AND SYMPTOMS OF ACUTE DISTRESS NOTED. INITIAL ASSESSMENT DONE. NON-COMPLIANT AT TIMES. KEEP COMFORTABLE ON BED. EXPLAINED DIAGNOSIS, PLAN OF CARE, PAIN MANAGEMENT TEACHING, USE OF CALL LIGHT/BED/TV/BATHROOM. VERBALIZED UNDERSTANDING. FALL PRECAUTION APPLIED. CALL LIGHT WITHIN REACH. Addendum: 07/30/16 at 1045 by Jono Cespedes LVN WRONG ENTRY: ENTERED NOTES AT WRONG PATIENT.
--- NOTE | 2016-07-30 07:10 | NUR ---
ASSUMED CONTINUITY OF CARE. NO SIGNS AND SYMPTOMS OF ACUTE DISTRESS NOTED. INITIAL ASSESSMENT DONE. RE-ORIENTED TO EVENTS AND SURROUNDINGS. HOB ELEVATED AND KEEP COMFORTABLE. EXPLAINED DIAGNOSIS, PLAN OF CARE, PAIN MANAGEMENT TEACHING, CONTACT ISOLATION PRECAUTION, USE OF CALL LIGHT/BED/TV/BATHROOM, VERBALIZED UNDERSTANDING. FALL PRECAUTION APPLIED. CALL LIGHT WITHIN REACH.
[2016-07-30 07:15] LABS: CALCIUM 7.9 mg/dL (8.5-10.1); CARBON DIOXIDE 26.1 mmol/L (21-32); POTASSIUM 4.1 mmol/L (3.5-5.1)
[2016-07-30 07:16] LABS: CREATININE 1.6 mg/dL (0.6-1.3)
--- NOTE | 2016-07-30 07:18 | NUR ---
ENDORSED PATIENT TO DAY LEAD GENERATION REPRESENTATIVE FOR CONTINUITY OF CARE, PATIENT IS IN STABLE CONDITION.
[2016-07-30] MEDS: CARVEDILOL 6.25 MG TAB PO SCH ×3 (08:47→16:57)
[2016-07-30] MEDS: LACTULOSE 20 GM/30 ML UDC PO SCH (08:56)
[2016-07-30] MEDS: SUCRALFATE 1 GM TAB PO SCH ×2 (08:56→20:46)
[2016-07-30] MEDS: SODIUM CHLORIDE 1 GM TAB PO SCH ×2 (08:56→20:46)
[2016-07-30] MEDS: FERROUS SULFATE 325 MG TABEC PO SCH ×2 (08:56→20:47)
[2016-07-30] MEDS: VIT-B COMP/VIT-C/FOLIC ACID 1 TAB PO SCH (08:57)
[2016-07-30] MEDS: TAMSULOSIN 0.4 MG CAP PO SCH (08:57)
[2016-07-30] MEDS: ALLOPURINOL 100 MG TAB PO SCH ×2 (08:57→20:46)
[2016-07-30] MEDS: ENOXAPARIN 40 MG/0.4 ML SYR SUBQ SCH (08:58)
[2016-07-30] MEDS ORDERED: VANCOMYCIN 1GM/DEXT 5% PREMIX 200 ML IV SCH ×3 (09:00→22:00)
--- NOTE | 2016-07-30 11:02 | NUR ---
CM NOTE CONCURRENT REVIEW FAXED TO [facility] / FAX# [phone], ATTN: TIEN #[phone]
[2016-07-30] MEDS: INSULIN LISPRO SLIDING SCALE 100 UNITS/ML VIAL SUBQ PRN ×3 (11:20→21:36)
--- NOTE | 2016-07-30 14:00 | NUR ---
SS NOTE: PER TITI FROM [facility], THEY ARE UNABLE TO ACCEPT PT DUE TO PT NEEDING MOVIE CRITIC CARE PER CHRISTA FROM [facility], NO ISO BED AVAILABLE PER MARY FROM [facility], NO ISO BED AVAILABLE PER KHALIDA FROM [facility], NO ISO BED AVAILABLE
--- NOTE | 2016-07-30 14:35 | NUR ---
PT WANTED TO BE PLACED ON BIPAP RR 28 AND AT BEDSIDE PT IS AWAKE AND ALERT, ALARMS ON AND FUNCTIONING PROPERLY, AMBU BAG AT HOB B\S ARE COARSE BILATERALLY, PT WEARING LARGE FACE MASK WITH PROTETIC GEL IN PLACE.
--- NOTE | 2016-07-30 15:15 | NUR ---
CALLED EVY KOHLER HD NURSE AT [phone] AND INFORMED OF PERICO FONTAINE ORDER OF HD FOR TODAY 07/30/16. PER EVY KOHLER, SHE WILL CHECK HER HD NURSE HD SCHEDULE. INFORMED CHARGE NURSE SHANIA PASCAL -SRIDHAR.
--- NOTE | 2016-07-30 16:48 | NUR ---
BIPAP CHECK, PT IS GETTING CLEANED NO SIGNS OF DISTRESS NOTED AT THIS TIME
--- NOTE | 2016-07-30 17:05 | NUR ---
CALLED HD NURSE EVY KOHLER AT AND INFORMED ONCE AGAIN OF MD ORDER OF PT HD TODAY 07/30/16. PER. EVY KOHLER HD NURSE WILL COME AT 2200 TONIGHT DUE HD NURSE UNAVAILABILITY. INFORMED CHARGE NURSE SHANIA PASCAL -SRIDHAR.
--- NOTE | 2016-07-30 17:40 | NUR ---
PAGED PERICO FONTAINE REGARDING PT. HD SCHEDULED [facility] 07/30/16. LEFT CALL BACK NUMBER.
--- NOTE | 2016-07-30 17:52 | NUR ---
PERICO FONTAINE CALLED BACK, INFORMED THAT PT. HD WILL BE DONE AT 2200 TONIGHT PER EVY KOHLER HD NURSE BECAUSE NO AVAILABLE HD NURSE AVAILABLE TO DO IT EARLY. PERICO FONTAINE VERBALIZED UNDERSTANDING VIA PHONE. INFORMED CHARGE NURSE SHANIA PASCAL -SRIDHAR.
--- NOTE | 2016-07-30 18:43 | NUR ---
I WAS CALLED BY THE RN TO PLACED BACK PT ON BIPAP, AFTER HE WAS EATING. PT ON BIPAP, COMFORTABLE, BS ARE BILAT COARSE TO CLEAR, AND, HE WANTS TO SLEEP
--- NOTE | 2016-07-30 19:08 | NUR ---
REPORT GIVEN TO PORTIA WOODS. IN STABLE CONDITION.
--- NOTE | 2016-07-30 19:09 | NUR ---
RECEIVED REPORT FROM NALINI STAFF INTERNIST OFFICE BASED ONLY FOR CONTINUITY OF CARE. PATIENT IS A&OX4 [place]RA[place] SPEAKING, DISCUSSED PLAN OF CARE WITH PATIENT, ABLE TO VERBALIZE UNDERSTANDING. SHIFT ASSESSMENT DONE, VS TAKEN, STABLE, B/P 124/68. PT CURRENTLY ON BIPAP SETTINGS AT: IPAP 13, EPAP 8, RATE 23, VT 440, O2 % @ 30, O2 SAT 100%. DENIES PAIN AT THIS TIME. PT HAS RT IJ YESSI CATHETER DOUBLE LUMEN, DIALYSIS TO BE DONE TONIGHT, WILL FOLLOW UP WITH DIALYSIS NURSE REGARDING TIME. PT ALSO HAS PICC LINE TO LT UPPER ARM FLUSHED AND INTACT. BUE AND BLE EDEMA PITTING +2, SCROTAL EDEMA NOTED WITH DISCHARGE. ARAGON CATHETER IN PLACE. SAFETY/ FALL/ CONTACT PRECAUTIONS ENFORCED. CALL LIGHT WITHIN REACH. WILL CONTINUE TO MONITOR.
--- NOTE | 2016-07-30 20:02 | NUR ---
PT C/O ANXIETY AND WANTS TYLENOL OR SOMETHING TO "CALM HIM DOWN", SPOKE TO DR. COLON REGARDING ORDERS. WILL FOLLOW OUT GIVEN.
[2016-07-30] MEDS ORDERED: LORazepam 2 MG/ML VIAL IVP PRN (20:05)
[2016-07-30] MEDS: ACETAMINOPHEN 325 MG TAB PO PRN (20:46)
[2016-07-30] MEDS: SENNA 8.6 MG TAB PO SCH (20:46)
[2016-07-30] MEDS: SIMVASTATIN 20 MG TAB PO SCH (20:46)
--- NOTE | 2016-07-30 20:46 | NUR ---
DUE MEDICATIONS ADMINISTERED, TOLERATED WELL. TYLENOL GIVEN FOR PAIN. BLOOD SUGAR 186, WILL ADMINISTER INSULIN PER MD ORDER.
--- NOTE | 2016-07-30 20:58 | NUR ---
SPOKE TO DIALYSIS NURSE, WILL BE HERE AT 2200.
--- NOTE | 2016-07-30 21:30 | NUR ---
PATIENT HAD A SMALL FORMED BOWEL MOVEMENT, CHANGED AND REPOSITIONED PATIENT.
--- NOTE | 2016-07-30 22:00 | NUR ---
DIALYSIS NURSE IN WITH PATIENT TO BEGIN HEMODIALYSIS. PT IS IN STABLE CONDITION. NO S/S OF DISTRESS NOTED ON 2L NC.
[2016-07-31] VITALS: BP 92/51
--- NOTE | 2016-07-31 | NUR ---
SPOKE WITH Bianka FONTAINE FOR [place] ORDER.
--- NOTE | 2016-07-31 00:03 | NUR ---
VS TAKEN, STABLE. PROVIDED PATIENT WITH WATER. DIALYSIS NURSE AT BEDSIDE. WILL CONTINUE TO MONITOR.
--- NOTE | 2016-07-31 01:30 | NUR ---
DIALYSIS NURSE FINISHING UP HD. 2000 ML OUT. PT SHOWS NO S/S OF DISTRESS.
[2016-07-31 04:00] VITALS: BP 112/55
--- NOTE | 2016-07-31 04:03 | NUR ---
VS TAKEN, STABLE. PT IS SLEEPING. NO S/S OF DISTRESS OR DISCOMFORT NOTED. CALL LIGHT WITHIN REACH.
[2016-07-31] MEDS: MEROPENEM 500 MG in NACL 0.9% 50 ML IV SCH ×3 (05:30→20:26)
--- NOTE | 2016-07-31 06:12 | NUR ---
BLOOD SUGAR TAKEN, NO COVERAGE NEEDED. PT IS SLEEPING. NO S/S OF DISTRESS OR DISCOMFORT NOTED.
[2016-07-31] MEDS: BLOOD GLUCOSE MONITORING 1 DEV DEV FS SCH ×4 (06:18→20:25)
[2016-07-31 06:29] LABS: ANION GAP 9.3 (8-16); CALCIUM 7.7 mg/dL (8.5-10.1); CARBON DIOXIDE 28.4 mmol/L (21-32); CREATININE 1.6 mg/dL (0.6-1.3); POTASSIUM 3.7 mmol/L (3.5-5.1)
--- NOTE | 2016-07-31 07:22 | NUR ---
ENDORSED PATIENT TO DAY RN FOR CONTINUITY OF CARE, PATIENT IS IN STABLE CONDITION.
--- NOTE | 2016-07-31 07:30 | NUR ---
RECEIVED PT RESTING COMFORTABLY IN BED, AAOX4, ABLE TO VERBALIZE NEEDS; NO C/O PAIN OR SOB AT THIS TIME, NO S/S DISTRESS. RESPIRATIONS EVEN AND UNLABORED ON O2@2L/MIN VIA NC. ROUTINE/PLAN OF CARE DISCUSSED AND REVIEWED, PT VERBALIZES UNDERSTANDING AND COMPLIANCE. PICC LINE TO LEFT UPPER ARM, SITE ASYMPTOMATIC. RIGHT IJ YESSI CATH, SITE ASYMPTOMATIC. ARAGON CATH PATENT AND DRAINING BY GRAVITY, HAZY ANGELINE URINE. BUE/BLE 2+PITING EDEMA. REPOSITIONING PER PROTOCOL. SAFETY PRECAUTIONS OBSERVED AND MAINTAINED. ENCOURAGED PT TO CALL FOR ASSISTANCE NEEDED.
[2016-07-31 08:00] VITALS: BP 92/56
[2016-07-31] MEDS: CARVEDILOL 6.25 MG TAB PO SCH ×2 (08:00→16:43)
[2016-07-31] MEDS: LACTULOSE 20 GM/30 ML UDC PO SCH (09:37)
[2016-07-31] MEDS: ALLOPURINOL 100 MG TAB PO SCH ×2 (09:37→20:27)
[2016-07-31] MEDS: SUCRALFATE 1 GM TAB PO SCH ×2 (09:38→20:26)
[2016-07-31] MEDS: TAMSULOSIN 0.4 MG CAP PO SCH (09:39)
[2016-07-31] MEDS: SODIUM CHLORIDE 1 GM TAB PO SCH ×2 (09:39→20:37)
[2016-07-31] MEDS: VIT-B COMP/VIT-C/FOLIC ACID 1 TAB PO SCH (09:39)
[2016-07-31] MEDS: FERROUS SULFATE 325 MG TABEC PO SCH ×2 (09:40→20:26)
[2016-07-31] MEDS: ENOXAPARIN 40 MG/0.4 ML SYR SUBQ SCH (09:47)
--- NOTE | 2016-07-31 09:50 | NUR ---
VS NOTED. HELD COREG, D/T DECREASED BP. REMAINING DUE MEDS ADMINISTERED ORDERED WITH EDUCATION, PT TOLERATED WELL. GOOD APPETITE NOTED, ASSISTED PT WITH ADLs. CONDITION STABLE, WILL CONTINUE TO MONITOR.
[2016-07-31 10:08] LABS: HEPATITIS B CORE AB TOTAL Negative (Negative); HEPATITIS B SURFACE AB Reactive (.); HEPATITIS B SURFACE ANTIGEN Negative (Negative)
--- NOTE | 2016-07-31 10:15 | NUR ---
SS NOTE: PER [facility] KAYKAY CHAUHAN, [facility] [place] AND [facility] [place] PER YVES FROM [facility], NO MALE BEDS AVAILABLE SENT SNF PLACEMENT [facility]QUIRY TO [facility], RECEIVED FAX CONFIRMATION Addendum: 07/31/16 at 1139 by Erin Cook SS PER ROSANNE FROM [facility], THEY ARE UNABLE TO ACCEPT ANY MORE PTS THAT REQUIRE DIALYSIS SO THEY ARE UNABLE TO ACCEPT PT.
--- NOTE | 2016-07-31 10:28 | NUR ---
NOTIFIED DR HARPER OF CONSULTATION; ORDERS RECEIVED FOR PLACEMENT OF TUNNELED HD CATH, TO BE DONE TOMORROW AT 0830.
--- NOTE | 2016-07-31 11:45 | NUR ---
CM NOTE CONCURRENT REVIEW FAXED TO [facility] / FAX# [phone], ATTN: TIEN #[phone] REVIEW FAXED TO [facility] (FAX# [phone]) PER BEE' REQUEST.
[2016-07-31 12:00] VITALS: BP 96/62
[2016-07-31] MEDS ORDERED: ALBUMIN HUMAN 25% 100 ML IV SCH (12:00)
[2016-07-31] MEDS ORDERED: FUROSEMIDE 100 MG/10 ML VIAL IV SCH (12:00)
--- NOTE | 2016-07-31 12:00 | NUR ---
PT EVALUATED BY DR SALAZAR WITH PRESENT, DISCUSSED PT CONDITION AND PLAN OF CARE, PT AND VERBALIZE UNDERSTANDING AND COMPLIANCE. NEW ORDERS ACKNOWLEDGED AND CARRIED OUT. CONSENT SIGNED FOR PLACEMENT OF TUNNELED HD CATH, EDUCATION HANDOUT PROVIDED IN [place]. HD ORDERED FOR TODAY, [employer] DEVELOPER SAAD NOTIFIED DIALYSIS GROUP. VSS.
--- NOTE | 2016-07-31 12:25 | NUR ---
MERREM INFUSING WELL AT THIS TIME.
[2016-07-31] MEDS: INSULIN LISPRO SLIDING SCALE 100 UNITS/ML VIAL SUBQ PRN ×3 (12:34→20:39)
--- NOTE | 2016-07-31 13:25 | NUR ---
ALBUMIN IV ADMINISTERED ORDERED. LASIX IV TO BE GIVEN AFTER ALBUMIN INFUSION PER DR SALAZAR'S ORDER.
[2016-07-31] MEDS: ALBUTEROL 0.083% 2.5 MG/3 ML NEBU INH PRN ×2 (14:57→19:36)
--- NOTE | 2016-07-31 14:58 | NUR ---
CALLED TO BEDSIDE FOR PATIENT EVALUATION BY JIE/SRIDHAR PATIENT PRESENTING WITH INCREASED AND C/O SOB ASSESSMENT COMPLETED HHN PRN THERAPY GIVEN AT THIS TIME TOLERATED WELL WITHOUT INCIDENT [facility]ES [facility] V60 BIPAP AT BEDSIDE
[2016-07-31 16:00] VITALS: BP 93/60
--- NOTE | 2016-07-31 18:00 | NUR ---
CONDITION REMAINS STABLE. ALL NEEDS MET AT THIS TIME.
--- NOTE | 2016-07-31 19:09 | NUR ---
CONDITION STABLE, ENDORSED PLAN OF CARE TO OFFSET PRINTER RN.
--- NOTE | 2016-07-31 19:28 | NUR ---
RECEIVED REPORT FROM SRIDHAR HOOVER, AT BEDSIDE. INITIAL ASSESSMENT AND BODY CHECK DONE. PATIENT AAO X 4, ABLE TO FOLLOW SIMPLE COMMAND AND MAKE NEEDS KNOWN AND ON BEDBOUND DUE TO RT SIDE WEAKNESS. PATIENT CURRENTLY LYING DOWN ON THE BED AND WATCHING TV. NO S/S OF DISTRESS OR SOB NOTED. SKIN WARM/DRY TO TOUCH WITH NORMAL COLOR AND INTACT WITH BUE/BLE EDEMA. DENIED OF ANY PAIN/DISCOMFORT AT THIS TIME. DISCUSSED PLAN OF CARE, PAIN MANAGEMENT AND MEDICATION REGIMEN WITH PATIENT. PLACED PATIENT ON SAFETY/FALL/PRESSURE ULCER/ASPIRATION PRECAUTIONS AND CONTACT ISOLATION. WILL CONTINUE TO MONITOR WITH REPOSITION Q 2 HOURS. CALL LIGHT LEFT WITHIN REACH.
[2016-07-31 19:30] VITALS: BP 104/67
[2016-07-31] MEDS: SIMVASTATIN 20 MG TAB PO SCH (20:27)
[2016-07-31] MEDS: SENNA 8.6 MG TAB PO SCH (20:27)
--- NOTE | 2016-07-31 21:00 | NUR ---
ADMINISTERED DUE MEDICATIONS MD'S ORDERED WITH EDUCATION GIVEN. PATIENT COMPLYING WITH MEDICATIONS AND TOLERATED WELL. REPOSITION FOR COMFORT/PRESSURE RELIEF AND KEPT PATIENT WARM. WILL CONTINUE MONITOR.
--- NOTE | 2016-07-31 21:12 | NUR ---
HD NURSE HERE PREPARING PATIENT FOR DIALYSIS.
--- NOTE | 2016-07-31 22:05 | NUR ---
ROUNDS MADE, SEEN PATIENT RESTED COMFORTABLY IN BED AND NO S/S OF DISTRESS NOTED. HD IS ON GOING. WILL CONTINUE TO MONITOR.
[2016-08-01] VITALS: BP 108/61
--- NOTE | 2016-08-01 00:12 | NUR ---
FINISHED DIALYSIS AND 3 LITERS OUTPUT. PATIENT TOLERATED WELL WITHOUT POTENTIAL COMPLICATION NOTED. V/S REMAINED WNL AND NO S/S OF DISTRESS NOTED. REPOSITION AND OFFLOADED PRESSURE AREAS. WILL CONTINUE TO MONITOR.
--- NOTE | 2016-08-01 02:00 | NUR ---
PATIENT RESTED WELL ON THE BED WITH EVEN AND UNLABORED RESPIRATORY RATE. REPOSITION AND PATIENT TOLERATED WELL.
[2016-08-01 04:00] VITALS: BP 113/71
[2016-08-01] MEDS: MEROPENEM 500 MG in NACL 0.9% 50 ML IV SCH ×3 (04:22→22:09)
--- NOTE | 2016-08-01 04:30 | NUR ---
PATIENT HAD ONE MEDIUM BM. AM CARE/KEISHA-CARE GIVEN WITH LINENS CHANGED AND REPOSITION/OFFLOADED PRESSURE AREAS. NO SKIN BREAK DOWN NOTED. PATIENT TOLERATED WELL AND REMAINED IN STABLE CONDITION. WILL CONTINUE TO MONITOR.
[2016-08-01] MEDS: BLOOD GLUCOSE MONITORING 1 DEV DEV FS SCH ×4 (05:36→21:00)
[2016-08-01 06:48] LABS: ALBUMIN 2.1 g/dL (3.4-5.0); ANION GAP 10.6 (8-16); CALCIUM 7.9 mg/dL (8.5-10.1); CARBON DIOXIDE 28.7 mmol/L (21-32); CREATININE 1.9 mg/dL (0.6-1.3); PHOSPHORUS 3.6 mg/dL (2.5-4.9); POTASSIUM 4.3 mmol/L (3.5-5.1); TOTAL BILIRUBIN 0.4 mg/dL (0.0-1.0); TOTAL PROTEIN, SERUM 6.9 g/dL (6.4-8.2)
--- NOTE | 2016-08-01 07:18 | NUR ---
PATIENT RESTED WELL THROUGHOUT THE SHIFT AND REMAINED IN STABLE CONDITION WITHOUT APPARENT DISTRESS NOTED. ENDORSED PLAN OF CARE TO SRIDHAR ROSADO, AT BEDSIDE.
--- NOTE | 2016-08-01 07:19 | NUR ---
PT ALERT AND ORIENTED X4, EMIRATI SPEAKING. WITH O2 AT 2L/MIN VIA NC. NO SIGNS OF ACUTE DISTRESS. SKIN IS WARM AND DRY. FOR SCHEDULED PROCEDURE FOR TUNNELED CATHETER PLACEMENT TODAY. PRE OP CHECKLIST DONE REPORTED BY BODY MECHANIC NURSE. KEPT ON NPO ORDERED. NO C/O ANY BOWEL OR BLADDER DISCOMFORT, DENIES OF ANY PAIN OR DISCOMFORT. ALL NEEDS ATTENDED, SAFETY AND CONTACT PRECAUTIONS MAINTAINED. CALL LIGHT WITHIN REACH.
[2016-08-01 08:00] VITALS: BP 106/64
[2016-08-01] MEDS: CARVEDILOL 6.25 MG TAB PO SCH ×2 (08:00→16:31)
[2016-08-01] MEDS: SUCRALFATE 1 GM TAB PO SCH ×2 (08:19→22:09)
[2016-08-01] MEDS: ENOXAPARIN 40 MG/0.4 ML SYR SUBQ SCH (08:20)
[2016-08-01] MEDS: SODIUM CHLORIDE 1 GM TAB PO SCH ×2 (08:20→22:25)
[2016-08-01] MEDS: FERROUS SULFATE 325 MG TABEC PO SCH ×2 (08:20→22:09)
[2016-08-01] MEDS: ALLOPURINOL 100 MG TAB PO SCH ×2 (08:20→22:10)
[2016-08-01] MEDS: LACTULOSE 20 GM/30 ML UDC PO SCH (08:20)
[2016-08-01] MEDS: VIT-B COMP/VIT-C/FOLIC ACID 1 TAB PO SCH (08:20)
[2016-08-01] MEDS: TAMSULOSIN 0.4 MG CAP PO SCH (08:20)
--- NOTE | 2016-08-01 08:21 | NUR ---
LOVENOX HELD FOR SURGERY TODAY. CONTINUE TO MONITOR.
--- NOTE | 2016-08-01 08:44 | NUR ---
PT ALERT AND RESPONSIVE, NO SIGNS OF ACUTE DISTRESS. REPORT GIVEN TO ISABELL WALLER FROM OR. PT WENT OFF UNIT FOR TUNNELED CATHETER PLACEMENT.
[2016-08-01] MEDS ORDERED: BUPIVACAINE-MPF/EPI 0.25% 30 ML VIAL INJ ONE (08:46)
[2016-08-01] MEDS ORDERED: LIDOCAINE 1% 50 ML ONE (08:46)
[2016-08-01] MEDS ORDERED: ceFAZolin 1,000 MG VIAL ONE (08:47)
[2016-08-01] MEDS ORDERED: VANCOMYCIN 1GM/DEXT 5% PREMIX 200 ML IV SCH (09:00)
[2016-08-01] MEDS ORDERED: MIDAZOLAM 2 MG/2 ML VIAL ONE (09:01)
[2016-08-01] MEDS ORDERED: fentaNYL 0.05 MG/ML VIAL ONE (09:02)
[2016-08-01 11:05] VITALS: BP 94/63
--- NOTE | 2016-08-01 11:05 | NUR ---
PT RETURNED FROM PROCEDURE, S/P TUNNELED CATHETER PLACEMENT. PT ALERT AND ORIENTED, NO SIGNS OF ACUTE DSITRESS. NOTED ON RIGHT UPPER CHEST. DRESSING INTACT AND DRY. NO S/S OF BLEEDING. KEPT CLEAN AND DRY.
[2016-08-01] MEDS: INSULIN LISPRO SLIDING SCALE 100 UNITS/ML VIAL SUBQ PRN ×2 (11:46→22:12)
--- NOTE | 2016-08-01 11:56 | NUR ---
REPORTED BY ASSIGNED OR NURSE. IV VANCOMYCIN ADMINISTERED AT 0925 FROM OR. NOTED AND CONTINUE TO MONITOR.
--- NOTE | 2016-08-01 14:57 | NUR ---
SPOKE WITH DR. HARPER. IMAGING RESULTS REPORTED. RECEIVED NEW ORDER TO PLACE ON A FULL LIQUID DIET. NOTED AND CARRIED OUT.
[2016-08-01 16:00] VITALS: BP 104/58
--- NOTE | 2016-08-01 16:23 | NUR ---
SS NOTE: PER [place] [facility] [place][phone]), PT CAN GO TO ROOM 10B UNDER DR. RASHEEDA MCKEON UPON DISCHARGE.
--- NOTE | 2016-08-01 16:26 | NUR ---
NEW HD ORDER RECEIVED FROM DR. MARIE RIVER. CALLED [facility] AND SPOKE WITH EVY. MADE AWARE OF SCHEDULED HD APPOINTMENT FOR TODAY. CONTINUE TO MONITOR.
--- NOTE | 2016-08-01 16:37 | NUR ---
SS NOTE: I SPOKE WITH PT'S , FLORI TO INFORM HER OF PT'S POSSIBLE D/C OVER THE WEEKEND BACK TO [facility]. I ALSO INFORMED HER THAT SHE WILL NEED TO BE AT [facility] [place] AT NOON ON 08/05/16 TO SIGN PT'S DIALYSIS CONSENT FORMS. SHE STATED THAT SHE IS IN AGREEMENT WITH PT RETURNING TO [facility].
--- NOTE | 2016-08-01 16:47 | NUR ---
FAXED CONCURRENT REVIEW TO [facility] [phone] PHONE TIEN [phone] SPOKE WITH SANJANA AT [facility]. PHONE [phone]. SHE SAID THAT THE PATIENT IS SCHEDULED TO GO TO OP HD AT [facility], [address] [place] [address] PHONE [phone]. HIS CHAIR TIME IS 1:15P.M. ON THURSDAY, THURSDAY AND THURSDAY BUT ON THURSDAY FOR THE IST DIALYSIS, HE NEEDS TO BE THERE AT 12NOON. I CALLED TIEN FROM [facility] AND INFORMED HER THAT HE IS GOING TO [facility] ROOM 10B. [facility] AUTH IS [id number]. AUTH FOR TRANSPORT FROM [facility] TO [facility] IS BY JAVID, PHONE [phone], AUTH NUMBER IS [id number] AUTH FOR TRANSPORT FROM [facility] TO [facility] IS BY JAVID, [phone]. PHONE FOR JAVID IS [phone]
--- NOTE | 2016-08-01 17:43 | NUR ---
SPOKE WITH DR. PARSONS REGARDING IV ABX, HE WANTS TO CONTINUE MERREM 500 MG IV X 1 MORE WEEK AND TOGETEHER WITH VANCOMYCIN.
--- NOTE | 2016-08-01 17:46 | NUR ---
CALLED [facility] FOR POSSIBLE DISCHARGE ORDER TMW AND GAVE BED ROOM 49-C.
--- NOTE | 2016-08-01 18:45 | NUR ---
WAS SEEN BY EVY VALENTE RN, AND STARTED PT ON HD. TOLERATING WELL. CONTINUE TO MONITOR.
--- NOTE | 2016-08-01 18:56 | NUR ---
PT ALERT AND RESPONSIVE NO SIGNS OF ACUTE DISTRESS. ENDORSED TO ONCOMING PROTECTIVE OFFICER NURSE FOR CONTINUITY OF CARE.
--- NOTE | 2016-08-01 19:11 | NUR ---
RECEIVED FROM AM RN IN BED ON HEMODIALYSIS. ABLE TO VERBALIZE NEEDS IN [place]. HX. OF CVA WITH RIGHT SIDED WEAKNESS. NO SOB. NO COMPLAINTS AT THIS TIME. ORIENTED TO CALL LIGHT USE FOR HELP OR IF IN PAIN. NO COMPLAINTS DONE. TELEMETRY MONITORING.
[2016-08-01 20:00] VITALS: BP 98/70
--- NOTE | 2016-08-01 20:15 | NUR ---
RCV'D PT ON 2 L NC. PT SATTING 100% NO SOB OR DISTRESS NOTE. PT ON DIALYSIS. WILL CONTINUE TO MONITOR.
[2016-08-01] MEDS: SENNA 8.6 MG TAB PO SCH (22:09)
[2016-08-01] MEDS: SIMVASTATIN 20 MG TAB PO SCH (22:10)
--- NOTE | 2016-08-01 22:59 | NUR ---
PT. SLEEPING AT THIS TIME. TOLERATED P.O. MEDICATIONS WELL. NO COMPLAINTS OF ANY PAIN AT THIS TIME. ABLE TO VERBALIZE SIMPLE NEEDS IN [place] AND [place]. MICHAEL SPLIT TO RIGHT UPPER CHEST INTACT AND NO BLEEDING NOTED. HEMODIALYSIS OUTPUT WAS 3 THOUSAND ML. TOLERATED WELL. CALL LIGHT WITH IN REACH.
--- NOTE | 2016-08-01 23:37 | NUR ---
PT. TURNED TO SIDES Q 2H. ASSISTED WITH ADLS. RIGHT SIDED WEAKNESS. SLEEPING AT THIS TIME. CALL LIGHT WITH IN REACH AT BEDSIDE. TELEMETRY MONITORING.
[2016-08-02] MEDS: ACETAMINOPHEN 325 MG TAB PO PRN (00:06)
[2016-08-02 00:10] VITALS: BP 128/78
--- NOTE | 2016-08-02 02:13 | NUR ---
PT. TURNED TO SIDES BY CNAS. PILLOW SUPPORT TO PRESSURE AREAS. NO SOB. SLEEPING WELL.
--- NOTE | 2016-08-02 04:07 | NUR ---
PT. TURNED TO SIDES BY CNAS. PILLOW SUPPORT TO PRESSURE AREAS. KEPT COMFORTABLE. ABLE TO VERBALIZE NEEDS WELL IN [place]AN . NO SOB. ON AND ABLE TO USE CALL LIGHT FOR HELP. TELEMETRY MONITORING.
[2016-08-02] MEDS: MEROPENEM 500 MG in NACL 0.9% 50 ML IV SCH ×2 (04:28→13:03)
[2016-08-02 04:29] VITALS: BP 114/72
[2016-08-02] MEDS: BLOOD GLUCOSE MONITORING 1 DEV DEV FS SCH ×3 (06:05→16:45)
--- NOTE | 2016-08-02 06:29 | NUR ---
BLOOD SUGAR PER FINGERSTICK 135. NO RISS COVERAGE GIVEN. ABLE TO VERBALIZE WELL IN POLISH. TURNED Q 2H. ABLE TO USE CALL LIGHT.
[2016-08-02 07:19] LABS: ANION GAP 11.1 (8-16); CALCIUM 8.1 mg/dL (8.5-10.1); CARBON DIOXIDE 27.4 mmol/L (21-32); CREATININE 1.9 mg/dL (0.6-1.3); POTASSIUM 4.5 mmol/L (3.5-5.1)
--- NOTE | 2016-08-02 07:30 | NUR ---
RECEIVED REPORT FROM NIGHT NURSE. AOX4, PT RESTING IN BED. NO C/O ACUTE DISTRESS, NO SOB OR CP. PICC ACCESS ASYMPTOMATIC, PATENT AND INTACT. DIALYSIS ACCESS DRESSING CLEAN DRY INTACT. ARAGON CATH IN PLACE, DRAINING ANGELINE URINE. BUE AND BLE NOTED. ROUTINE/PLAN OF CARE DISCUSSED AND REVIEWED, PT VERBALIZES UNDERSTANDING AND COMPLIANCE. SAFETY MEASURES IN PLACE. WILL CONTINUE TO MONITOR.
[2016-08-02 07:45] LABS: MEAN CORPUSCULAR HEMOGLOBIN 28 pg (27-31); MEAN CORPUSCULAR HGB CONC 32 g/dL (33-37)
[2016-08-02 07:47] LABS: HEMATOCRIT 22.1 % (36-52); HEMOGLOBIN 7.2 g/dL (12.0-18.0); MEAN CORPUSCULAR VOLUME 86 fL (80-94); RED BLOOD CELL COUNT(AUTO) 2.57 MIL/uL (4.20-6.10)
[2016-08-02 07:48] LABS: PLATELET COUNT (AUTO) 334 K/uL (140-450)
[2016-08-02 07:59] VITALS: BP 110/66
[2016-08-02] MEDS: CARVEDILOL 6.25 MG TAB PO SCH (08:00)
[2016-08-02 08:02] LABS: NEUTROPHILS % (MANUAL) 73 (43-65)
[2016-08-02 08:03] LABS: BAND % (MANUAL) 2 % (0-8); EOSINOPHILS % (MANUAL) 7 % (0-4); LYMPHOCYTES % (MANUAL) 11 % (20-46); MONOCYTES % (MANUAL) 7 % (5-12); PLATELET ESTIMATE ADEQUATE
[2016-08-02] MEDS: SUCRALFATE 1 GM TAB PO SCH (08:43)
[2016-08-02] MEDS: TAMSULOSIN 0.4 MG CAP PO SCH (08:43)
[2016-08-02] MEDS: ALLOPURINOL 100 MG TAB PO SCH (08:43)
[2016-08-02] MEDS: VIT-B COMP/VIT-C/FOLIC ACID 1 TAB PO SCH (08:44)
[2016-08-02] MEDS: FERROUS SULFATE 325 MG TABEC PO SCH (08:44)
[2016-08-02] MEDS: SODIUM CHLORIDE 1 GM TAB PO SCH (08:44)
[2016-08-02] MEDS: LACTULOSE 20 GM/30 ML UDC PO SCH (08:45)
--- NOTE | 2016-08-02 08:45 | NUR ---
VS NOTED. COREG HELD, BP LOW. REMAINING PT ROUTINE MEDS GIVEN WITH EDUCATION. PT TOLERATED WELL. ASSISTED WITH ADLS. WILL CONTINUE TO MONITOR.
[2016-08-02] MEDS: ENOXAPARIN 40 MG/0.4 ML SYR SUBQ SCH (08:49)
--- NOTE | 2016-08-02 11:00 | NUR ---
DISCUSSED PLAN OF CARE WITH PT'S OVER THE PHONE. PT'S VERBALIZES UNDERSTANDING.
[2016-08-02 12:00] VITALS: BP 102/64
--- NOTE | 2016-08-02 12:00 | NUR ---
DR SPRAGUE ON IN UNIT, DISCUSSED PT CONDITION AND PLAN OF CARE. OK TO D/C PATIENT AFTER TRANSFUSION. REPEAT H&H NOT ORDERED.
[2016-08-02] MEDS: INSULIN LISPRO SLIDING SCALE 100 UNITS/ML VIAL SUBQ PRN (12:34)
--- NOTE | 2016-08-02 12:39 | NUR ---
PT EATING COMFORTABLY. MEDICATION ADMINISTERED PER PROTOCOL WITH EDUCATION. NO S/S OF DISTRESS. CALL LIGHT WITHIN REACH. SAFETY MEASURES IN PLACE. WILL CONTINUE TO MONITOR.
[2016-08-02] MEDS ORDERED: CARVEDILOL 3.125 MG TAB PO SCH (12:53)
--- NOTE | 2016-08-02 14:00 | NUR ---
DARIAN COMPLETED. PRE-TRANSFUSION VSS. PRBC STARTED AT THIS TIME. PT EDUCATED AND INSTRUCTED TO REPORT S/S OF DISTRESS. REMAINING AT BEDSIDE PER PROTOCOL.
--- NOTE | 2016-08-02 14:15 | NUR ---
PRBC INFUSING WELL. VSS. PT REPORTS NO S/S OF DISTRESS. SAFETY MEASURES IN PLACE. WILL CONTINUE TO MONITOR.
--- NOTE | 2016-08-02 14:48 | NUR ---
PRBC INFUSING WELL. VSS. PT REPORTS NO S/S OF DISTRESS. SAFETY MEASURES IN PLACE. WILL CONTINUE TO MONITOR.
--- NOTE | 2016-08-02 15:49 | NUR ---
08/02/16 RD FOLLOW UP COMPLETED PLEASE REFER TO NUTRITION PROGRESS NOTE UNDER CARE ACTIVITY FOR ESTIMATED NUTRITION NEEDS. RD RECOMMENDATIONS: 1. CONTINUE PUREE CCHO 60 GM RENAL DIET MEDICALLY APPROPRIATE. --NOTE PT CURRENTLY MEETING 82% OF ESTIMATED KCAL NEEDS AND 85% OF ESTIMATED PROTEIN NEEDS WITH AN AVG PO INTAKE OF 63%. --ADEQUATE 2. RD WILL FOLLOW UP IN 3-5 DAYS; MODERATE RISK HCERRY COLIN, RD
[2016-08-02 16:00] VITALS: BP 112/76
[2016-08-02 16:56] VITALS: BP 129/62
--- NOTE | 2016-08-02 17:00 | NUR ---
TRANSFUSION COMPLETED AT THIS TIME WITH NO COMPLAINTS OR S/S ADVERSE REACTIONS. VSS.
[2016-08-02] MEDS ORDERED: MER500I IV (17:20)
--- NOTE | 2016-08-02 17:25 | NUR ---
SPOKE WITH DR PARSONS, ORDERED TO CONTINUE MERREM IV X5DAYS. REPORT GIVEN TO ADRIA AT [facility]. ARAGON CATH REMOVED, PERICARE GIVEN.
--- NOTE | 2016-08-02 17:30 | NUR ---
DISCHARGE INSTRUCTIONS AND EDUCATION DISCUSSED WITH PT; PT VERBALIZES UNDERSTANDING, ALL FORMS SIGNED. [facility] AT BEDSIDE.
--- NOTE | 2016-08-02 17:40 | NUR ---
[place] [facility] [place] ST[place]. PT'S FLORI MADE AWARE.
== END 2016-08-02 17:40 | DRG 871 ==
LOC: MED 21:25 → MTU 23:45 → MIC 07-25 18:38 → MTU 07-28 19:15
PROVIDERS: ADMIT Hospitalist; ATTEND Hospitalist
PROC: 5A09557 Assistance with Respiratory Ventilation, Greater than 96 Consecutive Hours, Continuous Positive Airway Pressure (ICD-10-PCS; 2016-07-21)
PROC: 30233N1 Transfusion of Nonautologous Red Blood Cells into Peripheral Vein, Percutaneous Approach (ICD-10-PCS; principal; 2016-07-22)
PROC: 02HV33Z Insertion of Infusion Device into Superior Vena Cava, Percutaneous Approach (ICD-10-PCS; 2016-07-27)
PROC: B548ZZA Ultrasonography of Superior Vena Cava, Guidance (ICD-10-PCS; 2016-07-27)
PROC: 5A1D60Z (ICD-10-PCS; 2016-07-27)
PROC: 02PYX3Z Removal of Infusion Device from Great Vessel, External Approach (ICD-10-PCS; 2016-08-01)
PROC: 02HV33Z Insertion of Infusion Device into Superior Vena Cava, Percutaneous Approach (ICD-10-PCS; 2016-08-01)
PROC: B5181ZA Fluoroscopy of Superior Vena Cava using Low Osmolar Contrast, Guidance (ICD-10-PCS; 2016-08-01)
DX: A41.02 Sepsis due to Methicillin resistant Staphylococcus aureus (principal); I21.4 Non-ST elevation (NSTEMI) myocardial infarction; J96.00 Acute respiratory failure, unspecified whether with hypoxia or hypercapnia; G93.40 Encephalopathy, unspecified; I50.33 Acute on chronic diastolic (congestive) heart failure; N18.6 End stage renal disease; N39.0 Urinary tract infection, site not specified; E87.1 Hypo-osmolality and hyponatremia; N17.9 Acute kidney failure, unspecified; I69.351 Hemiplegia and hemiparesis following cerebral infarction affecting right dominant side; I13.2 Hypertensive heart and chronic kidney disease with heart failure and with stage 5 chronic kidney disease, or end stage renal disease; E87.5 Hyperkalemia; D50.9 Iron deficiency anemia, unspecified; E66.01 Morbid (severe) obesity due to excess calories; E11.8 Type 2 diabetes mellitus with unspecified complications; E11.22 Type 2 diabetes mellitus with diabetic chronic kidney disease; E78.00 Pure hypercholesterolemia, unspecified; N40.0 Benign prostatic hyperplasia without lower urinary tract symptoms; D63.8 Anemia in other chronic diseases classified elsewhere; B96.20 Unspecified Escherichia coli [E. coli] as the cause of diseases classified elsewhere; B96.4 Proteus (mirabilis) (morganii) as the cause of diseases classified elsewhere; E78.5 Hyperlipidemia, unspecified; M10.9 Gout, unspecified; Z93.1 Gastrostomy status; Z79.899 Other long term (current) drug therapy; Z86.72 Personal history of thrombophlebitis; Z68.39 Body mass index [BMI] 39.0-39.9, adult
CPT/HCPCS: 36415; 36600; 51702; 71010; 74000; 76604; 76770; 80048; 80053; 80202; 81001; 82272; 82533; 82550; 82553; 82803; 82948; 83605; 83690; 83735; 83880; 83930; 83935; 84100; 84133; 84300; 84443; 84484; 85025; 85610; 85730; 86704; 86706; 86708; 86709; 86803; 86886; 86900; 86901; 86920; 87040; 87070; 87075; 87077; 87081; 87086; 87186; 87340; 90935; 93005; 94640; 94660; 96360; 97110; 97140; 99291; C1751; C1758; J0610; J0690; J0696; J1644; J1650; J1815; J1940; J1956; J2001; J2185; J2250; J2270; J2405; J2543; J3010; J3370; J3490; J7030; J7060; J7613; P9016; P9046; Q0092